=== PATIENT | female | born 1965 | race Caucasian/White ===

== ENCOUNTER 2025-01-29 12:19 | Outpatient (OUT) | payer OTHER, SELFPAY ==
--- OUTSIDE RECORDS SUMMARY | 2025-01-23 13:00 | XMS_ITS | Encounter Summary ---
Author Organization [facility] Address [address] [place] [address] Care Team Providers Care Community Development Officer Name Role Phone Marta Doss MD Primary Care Provider [phone] Reason for Visit * Reason Comments URI Encounter Details Date Type Department Care Team ([facility] st Contact Info) Description 01/23/2025 1:00 PM EDT Office Visit [facility] [address] [place] [address] Haley Burrell NP [address] [phone] Fever, unspecified fever cause (Primary Dx); Nausea and vomiting, unspecified vomiting type; Acute gastroenteritis Social History Tobacco Use Types Packs/Day Years Used Date Smoking Tobacco: Never Smokeless Tobacco: Never Alcohol Use Standard Drinks/Week Comments Yes 0 (1 standard drink = 0.6 oz pur e alcohol) caffeine inatke: occassionally PHQ-2 Answer Date Recorded Patient Health Questionnaire-2 Score 0 12/23/2024 Comments No Sex and Gender Information Value Date Recorded Sex Assigned at Not on file Legal Sex Female 7:30 PM EDT Gender Identity Not on file Sexual Orientation Not on file documented as of this encounter Last Filed Vital Signs Vital Sign Reading Time Taken Comments Blood Pressure 126/82 01/23/2025 1:04 PM EDT Pulse 70 01/23/2025 1:04 PM EDT Temperature 37.8 C (100 F) 01/23/2025 1:04 PM EDT Respiratory Rate - - Oxygen Saturation 97% 01/23/2025 1:04 PM EDT Inhaled Oxygen Concentration - - Weight 75.4 kg (166 lb 3.2 oz) 01/23/2025 1:04 P M EDT Height - - Body Mass Index 28.98 12/23/2024 11:49 AM EDT documented in this encounter Progress Notes * Haley Burrell, CASE FILLER - 01/23/2025 1:00 PM EDT Images from the original note were not included. Rekha Dennis is a 59 y.o. female presents with chief complaint of URI HPI: HPI History of Present Illness The patient presents for evaluation of vomiting and diarrhea. She has been experiencing persistent vomiting since 8:00 AM yesterday, which she initially attributed to food poisoning from chicken consumption. The vomiting was severe, characterized by projectile expulsion of liquid. Concurrently, she also developed diarrhea. Her sleep was disrupted due to thesesymptoms. Despite attempting to work this morning, her symptoms recurred after two hours, forcing her to return home. She is unable to keep anything down, including water and Sprite. She suspects sheis severely dehydrated as she has been unable to retain any food or drink. She has lost 10 pounds since her last visit, which she believes is due to her illness. She is seeking relief from her stomach pain and vomiting to get some sleep. She reports an increase in illness frequency this year, with two instances each of bronchitis and viral infection. 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 Her COVID-19 and influenza tests were negative. SUBJECTIVE: MEDICATIONS: ALLERGIES Current Outpatient Medications Medication Instructions atorvastatin (Lipitor) 80 MG tablet TAKE ONE TABLET BY MOUTH EVERY DAY AT THE same time estradiol (Estrace) 0.1 MG/GM vaginal cream 2g vaginal daily for 2 weeks, then 2 times weekly following initial 2 weeks ezetimibe (ZETIA) 10 mg, Oral, Daily ezetimibe (ZETIA) 10 mg, Oral, Daily levothyroxine (Synthroid, Levoxyl) 150 MCG tablet TAKE ONE TABLET BY MOUTH IN THE MORNING ON AN EMPTY STOMACH lisinopril-hydroCHLOROthiazide 20-25 MG tablet 1 tablet, Oral, Every morning PARoxetine (PAXIL) 10 mg, Oral, Every morning traZODone (DESYREL) 50 mg, Oral, Nightly Allergies Allergen Reactions Seasonal Ic [Octacosanol] PAST MEDICAL HISTORY: SOCIAL HISTORY SURGICAL HISTORY: Past Medical History: Diagnosis Date Abdominal bloating Ankle fracture 04/2020 Left Cervical disc prolapse with radiculopathy Diabetes mellitus type II, controlled (HCC) Epigastric abdominal pain Ganglion cyst Ganglion/Synovial-cyst hand Hypertension Hypothyroidism Knee pain Lumbar back sprain Lumbar disc prolapse with compression radiculopathy Menopause present Postmenopausal bleeding Shingles Sinusitis Spondylolisthesis at L5-S1 level Unspecified otitis externa, right ear Social History Tobacco Use Smoking status: Never Smokeless tobacco: Never Vaping Use Vaping status: Never Used Substance Use Topics Alcohol use: Yes Comment: caffeine inatke: occassionally Drug use: Not Currently Past Surgical History: Procedure Laterality Date SECTION, CLASSIC EXPOSURE OF IMPACTED TOOTH OTHER SURGICAL HISTORY Laproscopy- Endometriosis MA LAP, SURG, RADFREQ ABLATION OF UTERINE FIBROID(S), INC INTRAOP GUIDE-MONITOR 2000 TUBAL LIGATION 2000 REVIEW OF SYMPTOMS: Review of Systems Constitutional: Positive for fatigue. Negative for fever. HENT: Positive for congestion, rhinorrhea, sinus pain and sore throat. Respiratory: Positive for cough, shortness of breath and wheezing. Cardiovascular: Negative for chest pain, palpitations and leg swelling. Gastrointestinal: Negative for abdominal pain. OBJECTIVE: Vitals: 01/23/25 1304 Temp: 100 ??F Physical Exam Vitals and nursing note reviewed. Constitutional: Appearance: Normal appearance. HENT: Head: Normocephalic and atraumatic. Right Ear: Tympanic membrane normal. Left Ear: Tympanic membrane normal. Nose: Nose normal. Eyes: Extraocular Movements: Extraocular movements intact. Conjunctiva/sclera: Conjunctivae normal. Pupils: Pupils are equal, round, and reactive to light. Cardiovascular: Rate and Rhythm: Normal rate and regular rhythm. Heart sounds: Normal heart sounds. Pulmonary: Effort: Pulmonary effort is normal. Breath sounds: Normal breath sounds. Abdominal: General: Bowel sounds are normal. There is no distension. Palpations: Abdomen is soft. Tenderness: There is no abdominal tenderness. There is no right CVA tenderness or left CVA tenderness. Musculoskeletal: Cervical back: Normal range of motion and neck supple. Neurological: Mental Status: She is alert. ASSESSMENT AND PLAN: Assessment/Plan Diagnoses and all orders for this visit: Fever, unspecified fever cause - STATUS COVID-19/FLU Nausea and vomiting, unspecified vomiting type - STATUS COVID-19/FLU - ondansetron (Zofran) 4 MG tablet; Take 2 tablets (8 mg) by mouth every 8 (eight) hours if needed for nausea or vomiting for up to 7 days Acute gastroenteritis Reassurance given that this is most likely viral and should continue to gradually improve. Increasewater intake, sipping clear fluids frequently, get plenty of rest. Keep to a bland diet, BRAT diet reviewed, advance as tolerated. Encouraged Probiotic. Wash hands often, and avoid sharing food/drinks. Instructed to notify office if symptoms persist and will obtain stool cultures to r/o bacterial cause at that time. No follow-ups on file. documented in this encounter Plan of Treatment Upcoming Encounters Date Type Department Care Team (Late st Contact Info) Description 02/17/2025 8:30 AM EDT Office Visit [facility] [address] [place] [phone] Liseth Vargas PA [address] [place] [address] documented as of this encounter Goals Goal Patient Goal Type Associated Problems Recent Progress Patient-Stated? Author Help patient manage antidepressant medication Care Plan Patient on antidepressant monitoring plan No Alfreda Mann NP Baseline PHQ-9 Care Plan Baseline PHQ-9 No Alfreda Mann NP documented as of this encounter Procedures Procedure Name Priority Date/Time Associated Diagnosis Comments STATUS COVID-19/FLU Routine 01/23/2025 1 :16 PM EDT Fever, unspecified fever cause Nausea and vomiting, unspecified vomiting type documented in this encounter Results * STATUS COVID-19/FLU (01/23/2025 1:16 PM EDT) FLU A negative FLU B negative SARS COV 2 RNA negative Nasal 01/23/2025 1:16 PM EDT Haley Nunes Indra CASE FILLER POINT OF CARE TEST ENTE R/EDIT ORDERABLES Final Result documented in this encounter Visit Diagnoses Diagnosis Fever, unspecified fever cause- Primary Nausea and vomiting, unspecified vomiting type Acute gastroenteritis Other and unspecified noninfectious gastroenteritis and colitis documented in this encounter Additional Health Concerns Active Problems Noted Date Diagnosed Date Patient on antidepressant monitoring plan 2024 Baseline PHQ-9 07/31/2024 Assessment Noted Time PHQ-9 Depression Total Score: 0 12/24/19 25 11:54 AM EDT documented as of this encounter Care Teams Community Development Officer Relationship Specialty Start Date End Date Marta Doss MD [address] [place] [address] PCP - General Family Medicine 10/26/23 documented as of this encounter
--- OUTSIDE RECORDS SUMMARY | 2025-01-27 15:30 | XMS_ITS | Encounter Summary ---
Author Organization [facility] Healthcare Address [address] [place] [address] Care Team Providers Care Mgmt Consultant Name Role Phone Marta Doss MD Primary Care Provider Reason for Referral * Imaging (Stat) - Closed Specialty Diagnoses / Procedures Referred By Contamber t Referred To Contact Radiology Diagnoses Continuous severe abdominal pain Nausea and vomiting, unspecified vomiting type Black tarry stools Procedures CT abdomen pelvis wo IV contrast Haley Burrell NP Phone: tel: [facility] FNR [address] [facility] [address] [place] [address] Phone: tel: fax: Referral ID Status Reason Start Date Expiration Date Visits Re quested Visits Authorized [id number] Closed 01/27/2025 07/26/2025 1 1 Reason for Visit * Reason Comments Pain Encounter Details Date Type Department Care Team ([facility] Contact Info) Description 01/27/2025 3:30 PM EDT Office Visit [facility] FM [address] [place] [address] Haley Burrell NP [address] [facility] [address] [place] [address] Continuous severe abdominal pain (Primary [...] EDT Office Visit [facility] B[facility] OB [address] [facility] [place] [id number] Liseth Vargas PA [address] [facility] [place] [address] Scheduled Orders Name Type Priority Associated Diagnoses Orde r Schedule Occult blood x 1, stool Lab Routine Black tarry stools Expected: 01/27/2025 (Approximate), Expires: 01/27/2026 Stool culture Microbiology Routine Black tarry stools [...] Procedure Name Priority Date/Time Associated Diagnosis Comments CBC (INCLUDES DIFF/PLT) Routine 01/27/2025 3:54 PM [...] type documented in this encounter Results * CT abdomen pelvis wo IV contrast [...] SIGNED BY: Josiah Sol MD Haley Burrell NP IMG CT PROCEDURES Final Result * (ABNORMAL) [...] Performing Organization Information Site ID: QPT Name: [employer] [facility] Address: [address] [place] [address], [address] [place] [phone] Director: Juve Zamarripa MD us Haley Burrell [employer]PER[employer] LAB BLOOD ORDERABLES Fi nal Result [facility] [...] Performing Organization Information Site ID: QPT Name: [employer] [facility] Address: [address] [place] [address], [address] [place] [phone] Director: Juve Zamarripa MD us Haley Burrell SUPERVISOR [employer] LAB BLOOD ORDERABLES Fi nal Result [facility] * Amylase (01/27/2025 3:54 PM EDT) AMYLASE 44 21 - 101 U/L [facility] Blood Venous blood specimen / Unknown 01/27/2025 3:54 PM EDT 01/27/2025 3:55 PM EDT Narrative [facility] - 01/28/2025 4:41 AM EDT COLLECTION KIT GIVEN TO PATIENT. PATIENT ADVISED TO RETURN. Resulting Agency Comment Performing Organization Information Site ID: QPT Name: [employer] [facility] Address: [address] [place] [address], [address] [place], [place] [id number] Director: Juve Zamarripa MD Haley Burrell SUPERVISOR [employer] LAB BLOOD ORDERABLES Fi nal Result Performing Organization Address [facility] Co de Phone Number [facility] * Lipase (01/27/2025 3:54 PM EDT) LIPASE 54 7 - 60 U/L [facility] Blood Venous blood specimen / Unknown 01/27/2025 3:54 PM EDT 01/27/2025 3:55 PM EDT Narrative [facility] - 01/28/2025 4:41 AM EDT COLLECTION KIT GIVEN TO PATIENT. PATIENT ADVISED TO RETURN. Resulting Agency Comment Performing Organization Information Site ID: QPT Name: [employer] [facility] Address: [address] [place] [address], [address] [place] [address] Director: Juve Zamarripa MD Haley Burrell SUPERVISOR [employer] LAB BLOOD ORDERABLES Fi nal Result Performing Organization Address [facility] de Phone Number [facility] documented in this encounter Visit Diagnoses [...] documented as of this encounter Care Teams Mgmt Consultant Relationship Specialty Start Date End Date Marta Doss MD [address] [place] [address] PCP - General Family Medicine 10/26/23 documented as of this encounter
--- OUTSIDE RECORDS SUMMARY | 2025-01-28 09:30 | XMS_ITS | Encounter Summary ---
Author Organization [facility] Healthcare Address [address] [place] [address] Care Team Providers Care Driver'S License Examiner Name Role Phone Marta Doss MD Primary Care Provider [phone] Reason for Visit * Imaging (Stat) - Closed Specialty Diagnoses / Procedures Referred By Contamber t Referred To Contact Radiology Diagnoses Continuous severe abdominal pain Nausea and vomiting, unspecified vomiting type Black tarry stools Procedures CT abdomen pelvis wo IV contrast Haley Burrell NP Phone: tel: [facility] [address] [facility] [address] [place] [address] Phone: tel: fax: Referral ID Status Reason Start Date Expiration Date Visits Re quested Visits Authorized [id number] Closed 01/27/2025 07/26/2025 1 1 Encounter Details Date Type Department Care Team (Latest Contact Info) Description 01/28/2025 9:30 AM EDT Ancillary Procedure [facility] FNR [address] [facility] [address] [place] [address] Continuous severe abdominal pain; Nausea [...] EDT Office Visit [facility] [address] [facility] [place] [address] Liseth Vargas PA [address] [facility] [place] [address] documented as of this encounter Goals Goal [...] documented as of this encounter Care Teams Driver'S License Examiner Relationship Specialty Start Date End Date Marta Doss MD [address] [place] [address] PCP - General Family Medicine 10/26/23 documented as of this encounter
--- OUTSIDE RECORDS SUMMARY | 2025-01-29 12:22 | XMS_ITS | Encounter Summary ---
Author Organization [facility] Address [address] [facility] [place] [address] Care Team Providers Care Foster Care Case Manager Name Role Phone Karla Alba DO Primary Care Provider [phone] Marta Doss MD Primary Care Provider [phone] Reason for Visit * Reason Onset Date Comments Med Refill 07/04/2023 Encounter Details Date Type Department Care Team (Late Contact Info) Description 07/04/2023 Refill [facility] [address] [place] [address] Karla Alba DO [address] [facility] [address] [place] [address] Primary insomnia Social History Tobacco Use Types Packs/Day Years Used Date Smoking Tobacco: Never Alcohol Use Standard Drinks/Week Comments Not Currently 0 (1 standard drink = 0.6 oz pur e alcohol) caffeine intake: none Comments Unknown Sex and Gender Information Value Date Recorded Sex Assigned at Not on file Legal Sex Female 7:30 PM EDT Gender Identity Not on file Sexual Orientation Not on file documented as of this encounter Plan of Treatment Upcoming Encounters Date Type Department Care Team (Late Contact Info) Description 02/17/2025 8:30 AM EDT Office Visit [facility] OB [address] [facility] [place] [phone] Liseth Vargas PA [address] [facility] [place] [address] documented as of this encounter Visit Diagnoses Diagnosis Primary insomnia Persistent disorder of initiating or maintaining sleep documented in this encounter Care Teams Foster Care Case Manager Relationship Specialty Start Date End Date Karla Alba DO PCP - General Family Medicine 11/29/22 10/25/23 Marta Doss MD [address] [place] [address] PCP - General Family Medicine 10/26/23 documented as of this encounter
--- OUTSIDE RECORDS SUMMARY | 2025-01-29 12:22 | XMS_ITS | Encounter Summary ---
Author Organization [facility] Address [address] [facility] [place] [address] Care Team Providers Care Hub Bander Name Role Phone Karla Alba DO Primary Care Provider [phone] Marta Doss MD Primary Care Provider [phone] Encounter Details Date Type Department Care Team (Late Contact Info) Description 08/02/2023 Orders Only [facility] [address] [place] [address] Karla Alba DO [address] [facility] [address] [place] [address] Social History Tobacco Use Types Packs/Day Years Used Date Smoking Tobacco: Never Smokeless Tobacco: Never Alcohol Use Standard Drinks/Week Comments Never 0 (1 standard drink = 0.6 oz [...] EDT Office Visit [facility] OB [address] [facility] [place] [address] Liseth Vargas PA [address] [facility] [place] [address] documented as of this encounter Procedures Procedure Name Priority Date/Time Associated Diagnosis Comments HM COLONOSCOPY Routine 05/05/2023 1:12 PM EDT documented in this encounter Results * Hm Colonoscopy (05/05/2023 1:12 PM EDT) Anatomical Region Laterality Modality Other Karla Alba DO HEALTH MAINTENANCE Final Result documented in this encounter Visit Diagnoses Not on filedocumented in this encounter Care Teams Hub Bander Relationship Specialty Start Date End Date Karla Alba DO PCP - General Family Medicine 11/29/22 10/25/23 Marta Doss MD [address] [place] [address] PCP - General Family Medicine 10/26/23 documented as of this encounter
--- OUTSIDE RECORDS SUMMARY | 2025-01-29 12:22 | XMS_ITS | Encounter Summary ---
Author Organization [facility] Address [address] [facility] [place] [address] Care Team Providers Care Director Nurses' Registry Name Role Phone Karla Alba DO Primary Care Provider [phone] Marta Doss MD Primary Care Provider [phone] Encounter Details Date Type Department Care Team (Late Contact Info) Description 05/05/2023 Abstract [facility]NR [address] [place] [address] Karla Alba DO [address] [facility] [address] [place] [address] Social History Tobacco Use Types [...] Visit [facility] OB [address] [facility] [place] [address] iLseth Vargas PA [address] [facility] [address] [place], [place] [id number] documented as of this encounter Visit Diagnoses Not on filedocumented in this encounter Care Teams Director Nurses' Registry Relationship Specialty Start Date End Date Karla Alba GudeliaDO PCP - General Family Medicine 11/29/22 10/25/23 Marta Doss MD [address] [place] [address] PCP - General Family Medicine 10/26/23 documented as of this encounter
--- OUTSIDE RECORDS SUMMARY | 2025-01-29 12:22 | XMS_ITS | Encounter Summary ---
Author Organization [facility] Address [address] [place] [address] Care Team Providers Care Patient Support Specialist Name Role Phone Parth, Karla Galeas DO Primary Care Provider [phone] Marta Doss MD Primary Care Provider Encounter Details Date Type Department Care Team (Late st Contact Info) Description 12/26/[address] [facility] [address] [facility] [address] [place] [phone] Олег Pena DO [address] [facility] [address] [place] [address] Social History Tobacco Use Types Packs/Day Years Used Date Smoking Tobacco: Never Tobacco Cessation:Counseling Given: Not Answered Alcohol Use Standard Drinks/Week Comments Not Currently [...] EDT Office Visit [facility] OB [address] [facility] [address] Liseth Vargas PA [address] [facility] [place] [address] documented as of this encounter Visit Diagnoses Not on filedocumented in this encounter Care Teams Patient Support Specialist Relationship Specialty Start Date End Date Karla Alba DO PCP - General Family Medicine 11/29/22 10/25/23 Marta Doss MD [address] [place] [address] PCP - General Family Medicine 10/26/23 documented as of this encounter
--- OUTSIDE RECORDS SUMMARY | 2025-01-29 12:23 | XMS_ITS | Encounter Summary ---
Author Organization [facility] Address [address] [place] [address] Care Team Providers Care Feed Mixer Helper Name Role Phone Marta Doss MD Primary Care Provider [phone] Encounter Details Date Type Department Care Team (Latest Contact Info) Description 01/27/2025 Travel Social History Tobacco Use Types Packs/Day Years [...] EDT Office Visit [facility] OB [address] [facility] [place] [address] Liseth Vargas PA [address] [facility] [place] [address] documented as of this encounter Goals Goal Patient Goal Type Associated Problems Recent Progress Patient-Stated? Author Help patient manage antidepressant medication Care Plan Patient on antidepressant monitoring plan No Alfreda Mann NP Baseline PHQ-9 Care Plan Baseline PHQ-9 No Alfreda Mann NP documented as of this encounter Visit Diagnoses Not on filedocumented in this encounter Additional Health Concerns Active Problems Noted Date Diagnosed Date Patient on antidepressant monitoring plan 2024 Baseline PHQ-9 07/31/2024 Assessment Noted Time PHQ-9 Depression Total Score: 0 12/24/19 25 11:54 AM EDT documented as of this encounter Care Teams Feed Mixer Helper Relationship Specialty Start Date End Date Marta Doss MD [address] [place] [address] PCP - General Family Medicine 10/26/23 documented as of this encounter
--- OUTSIDE RECORDS SUMMARY | 2025-01-29 12:23 | XMS_ITS | Encounter Summary ---
Author Organization [facility] Address [address] [facility] [place] [address] Care Team Providers Care Coat Examiner Name Role Phone Marta Doss MD Primary Care Provider [phone] Encounter Details Date Type Department Care Team ([facility] Contact Info) Description 11/21/2024 Orders Only [facility] [address] [facility] [place] [address] Kathya Martínez LPN [address] [place] [id number] Social History Tobacco Use Types Packs/Day Years Used Date Smoking Tobacco: Never Smokeless Tobacco: Never Alcohol Use Standard Drinks/Week Comments Yes 0 (1 standard drink = 0.6 oz pure alcohol) caffeine inatke: 2 cups of coffee Comments Unknown Sex and Gender Information Value Date Recorded Sex Assigned at Not on file Legal Sex Female 7:30 PM EDT Gender Identity Not on file Sexual Orientation Not on file documented as of this encounter Plan of Treatment Upcoming Encounters Date Type Department Care Team (Late Contact Info) Description 02/17/2025 8:30 AM EDT Office Visit [facility] OB [address] [place] [address] Liseth Vargas PA [address] [place], [place] [address] documented as of this encounter Goals Goal Patient Goal Type Associated Problems Recent Progress Patient-Stated? Author Help patient manage antidepressant medication Care Plan Patient on antidepressant monitoring plan No Kampfer, Alfreda, COMPUTER SYSTEMS SOFTWARE ENGINEER Baseline PHQ-9 Care Plan Baseline PHQ-9 No Alfreda Mann NP documented as of this encounter Procedures Procedure Name Priority Date/Time Associated Diagnosis Comments PAP SMEAR Routine 10/24/2024 12:00 AM EDT documented in this encounter Results * (ABNORMAL) Pap Smear (10/24/2024 12:00 AM EDT) Swab Cervical swab / Unknown Jamie Nurse [facility] Ob LAB CYTOLOGY ORDERABLES Final Result EXTERNAL LAB documented in this encounter Visit Diagnoses Not on filedocumented in this encounter Additional Health Concerns Active Problems Noted Date Diagnosed Date Patient on antidepressant monitoring plan 2024 Baseline PHQ-9 07/31/2024 documented as of this encounter Care Teams Coat Examiner Relationship Specialty Start Date End Date Marta Doss MD [address] [place] [address] PCP - General Family Medicine 10/26/23 documented as of this encounter
--- OUTSIDE RECORDS SUMMARY | 2025-01-29 12:23 | XMS_ITS | Encounter Summary ---
Author Organization [facility] Address [address] [place] [address] Care Team Providers Care Deli Slicer Name Role Phone Marta Doss MD Primary Care Provider [phone] Encounter Details Date Type Department Care Team (Latest Contact Info) Description 01/28/2025 Travel Social History Tobacco Use Types Packs/Day [...] EDT Office Visit [facility] OB [address] [facility] [phone] Liseth Vargas PA [address] [facility] [place] [address] documented as of this encounter Goals Goal [...] documented as of this encounter Care Teams Deli Slicer Relationship Specialty Start Date End Date Marta Doss MD [address] [place] [address] PCP - General Family Medicine 10/26/23 documented as of this encounter
--- OUTSIDE RECORDS SUMMARY | 2025-01-29 12:23 | XMS_ITS | Encounter Summary ---
Author Organization [facility] Address [address] [facility] [place] [address] Care Team Providers Care Top Cleaner Name Role Phone Marta Doss MD Primary Care Provider [phone] Encounter Details Date Type Department Care Team ([facility] Contact Info) Description 01/28/2025 Results Follow-Up [facility]NR FM [address] [place] [address] Alfreda Mann NP [address] [place], [place] [phone] Social History Tobacco Use Types Packs/Day Years [...] Upcoming Encounters Date Type Department Care Team ([facility] Contact Info) Description 02/17/2025 8:30 AM EDT Office Visit [facility] BCP OB [address] [facility] [address] Liseth Vargas PA [address] [facility] [address] [place], [place] [address] documented as of this encounter Goals Goal [...] documented as of this encounter Care Teams Top Cleaner Relationship Specialty Start Date End Date Marta Doss MD [address] [place] [address] PCP - General Family Medicine 10/26/23 documented as of this encounter
--- OUTSIDE RECORDS SUMMARY | 2025-01-29 12:23 | XMS_ITS | Encounter Summary ---
Author Organization [facility] Address [address] [place] [address] Care Team Providers Care Side Seam Machine Operator Name Role Phone Marta Doss MD Primary Care Provider [phone] Encounter Details Date Type Department Care Team (Late Contact Info) Description 11/27/2024 Results Follow-Up [facility]NR OB [address] [place] [address] Marta Blandon MA Social History Tobacco Use Types Packs/Day Years [...] Upcoming Encounters Date Type Department Care Team ([facility] Contact Info) Description 02/17/2025 8:30 AM EDT Office Visit [facility] OB [address] [facility] [place] [address] Liseth Vargas PA [address] [facility] [place] [address] documented as of this encounter Goals Goal [...] documented as of this encounter Care Teams Side Seam Machine Operator Relationship Specialty Start Date End Date Marta Doss MD [address] [place] [address] PCP - General Family Medicine 10/26/23 documented as of this encounter
--- OUTSIDE RECORDS SUMMARY | 2025-01-29 12:23 | XMS_ITS | Encounter Summary ---
Author Organization [facility] Address [address] [place] [address] Care Team Providers Care Green End Man Name Role Phone Marta Doss MD Primary Care Provider [phone] Encounter Details Date Type Department Care Team (Late Contact Info) Description 01/27/2025 Telephone [facility] FNR [address] [place] [address] Marta Velez MA [address] [place], [place] [address] Social History Tobacco Use Types Packs/Day Years [...] on file documented as of this encounter Miscellaneous Notes * Telephone Encounter - Marta Velez MA - 01/27/2025 8:02 AM EDT Scheduled documented in this encounter Plan of Treatment Upcoming Encounters Date Type Department Care Team (Late Contact Info) Description 02/17/2025 8:30 AM EDT Office Visit [facility] OB [address] [place] [address] [place] [address] Liseth Vargas PA [address] [place] [address] [place] [address] documented as of this encounter Goals Goal [...] documented as of this encounter Care Teams Green End Man Relationship Specialty Start Date End Date Marta Doss MD [address] [place] [address] PCP - General Family Medicine 10/26/23 documented as of this encounter
--- OUTSIDE RECORDS SUMMARY | 2025-01-29 12:23 | XMS_ITS | Encounter Summary ---
Author Organization [facility] Address [address] [place] [address] Care Team Providers Care Granite Polisher Name Role Phone Marta Doss MD Primary Care Provider Encounter Details Date Type Department Care Team (Late Contact Info) Description 01/28/2025 Results Follow-Up [facility] FM [address] [place] [address] Haley Burrell NP [address] [address] Social History Tobacco Use Types Packs/Day Years [...] EDT Office Visit [facility] [address] [facility] [place] [address] Liseth Vargas PA [address] [place], [place] [address] documented as of this encounter Goals Goal [...] documented as of this encounter Care Teams Granite Polisher Relationship Specialty Start Date End Date Marta Doss MD [address] [place] [address] PCP - General Family Medicine 10/26/23 documented as of this encounter
--- OUTSIDE RECORDS SUMMARY | 2025-01-29 12:23 | XMS_ITS | Encounter Summary ---
Author Organization [facility] Address [address] [facility] [place] [address] Care Team Providers Care Automatic Dispenser Mechanic Name Role Phone Marta Doss MD Primary Care Provider Encounter Details Date Type Department Care Team ([facility] Contact Info) Description 11/29/2024 Orders Only [facility] FNR [address] [place] [address] Marta Doss MD [address] [place], [place] [address] Social History Tobacco Use Types Packs/Day Years Used Date Smoking Tobacco: Never Smokeless Tobacco: Never Alcohol Use Standard Drinks/Week Comments Yes 0 (1 standard drink = 0.6 oz pure alcohol) caffeine inatke: 2 cups of coffee Comments No Sex and Gender Information Value Date Recorded Sex Assigned at Not on file Legal Sex Female 7:30 PM EDT Gender Identity Not on file Sexual Orientation Not on file documented as of this encounter Plan of Treatment Upcoming Encounters Date Type Department Care Team ([facility] Contact Info) Description 02/17/2025 8:30 AM EDT Office Visit [facility] BCP OB [address] [facility] [address] Liseth Vargas PA [address] [facility] [address] [place], [place] [address] documented as of this encounter Goals Goal Patient Goal Type Associated Problems Recent Progress Patient-Stated? Author Help patient manage antidepressant medication Care Plan Patient on antidepressant monitoring plan No Alfreda Mann NP Baseline PHQ-9 Care Plan Baseline PHQ-9 No Alfreda Mann NP documented as of this encounter Procedures Procedure Name Priority Date/Time Associated Diagnosis Comments DIABETIC RETINOPATHY SCREENING - OU - BOTH EYES Routine 11/28/2024 9:12 AM EDT documented in this encounter Results * Diabetic Retinopathy Screening - OU - Both Eyes (11/28/2024 9:12 AM EDT) Anatomical Region Laterality Modality Head Other us Marta Doss MD OPHTH PHOTOGRAPHY Final Resul t documented in this encounter Visit Diagnoses Not on filedocumented in this encounter Additional Health Concerns Active Problems Noted Date Diagnosed Date Patient on antidepressant monitoring plan 2024 Baseline PHQ-9 07/31/2024 documented as of this encounter Care Teams Automatic Dispenser Mechanic Relationship Specialty Start Date End Date Marta Doss MD [address] [place] [address] PCP - General Family Medicine 10/26/23 documented as of this encounter
--- OUTSIDE RECORDS SUMMARY | 2025-01-29 12:23 | XMS_ITS | Clinical Summary ---
Author Organization [facility] Healthcare Address [address] [place] [address] Care Team Providers Care Mutuel Cashier Name Role Phone Marta Doss MD Primary Care Provider [phone] Allergies Active Allergy Reactions Criticality Noted Date Comments Octacosanol 02/01/2024 Medications levothyroxine (Synthroid, Levoxyl) 150 MCG tabletIndications :Acquired hypothyroidism TAKE ONE TABLET BY MOUTH IN THE MORNING ON AN EMPTY STOMACH 90 tablet 2 07/02/20 24 Active atorvastatin (Lipitor) 80 MG tabletIndications :Mixed hyperlipidemia TAKE ONE TABLET BY MOUTH EVERY DAY AT THE same time 90 tablet 1 10/09/19 25 Active traZODone (Desyrel) 50 MG tabletIndications :Primary insomnia Take 1 tablet (50 mg) by mouth at bedtime 90 tablet 1 10/31/19 25 Active ezetimibe (Zetia) 10 MG tabletIndications :Mixed hyperlipidemia Take 1 tablet (10 mg) by mouth Daily 90 tablet 11/05/19 25 Active PARoxetine (Paxil) 10 MG tabletIndications :Menopausal syndrome (hot flashes),Anxiety TAKE 1 TABLET BY MOUTH EVERY MORNING 90 tablet 1 11/11/19 25 Active estradiol (Estrace) 0.1 MG/GM vaginal creamIndications: Pain in female genitalia on intercourse 2g vaginal daily for 2 weeks, then 2 times weekly following initial 2 weeks 42.5 g 11/29/19 25 Active lisinopril-hydroC HLOROthiazide 20-25 MG tabletIndications :Primary hypertension Take 1 tablet by mouth in the morning. 90 tablet 1 01/02/20 25 Active ondansetron (Zofran) 4 MG tabletIndications :Nausea and vomiting, unspecified vomiting type Take 2 tablets (8 mg) by mouth every 8 (eight) hours if needed for nausea or vomiting for up to 7 days 20 tablet 01/24/20 25 2024 Active promethazine (Phenergan) 12.5 MG tabletIndications :Nausea and vomiting, unspecified vomiting type Take 1 tablet (12.5 mg) by mouth every 8 (eight) hours if needed for nausea or vomiting for up to 2 days 6 tablet 01/28/20 25 2024 Active ferrous sulfate (Fe Tabs) 325 (65 Fe) MG EC tabletIndications :Iron deficiency Take 1 tablet (325 mg) by mouth in the morning. Take with meals. Do not crush, chew, or split.. 90 tablet 1 02/02/20 24 2024 Discontinued(O ther) lisinopril-hydroC HLOROthiazide 20-25 MG tabletIndications :Primary hypertension TAKE ONE TABLET BY MOUTH EVERY MORNING 90 tablet 1 06/17/20 24 2024 Discontinued(R eorder) ezetimibe (Zetia) 10 MG tabletIndications :Mixed hyperlipidemia Take 1 tablet (10 mg) by mouth Daily for 10 days 10 tablet 11/05/19 25 2024 Discontinued benzonatate (Tessalon Perles) 100 MG capsuleIndication s:Acute bronchitis, unspecified organism Take 1 capsule (100 mg) by mouth 3 (three) times a day as needed for cough for up to 7 days Do not crush or chew. 20 capsule 12/24/19 25 2024 albuterol HFA 90 mcg/act inhalerIndication s:Acute bronchitis, unspecified organism Inhale 2 puffs every 4 (four) hours if needed for wheezing 18 g 12/24/19 25 2024 Discontinued(T herapy completed) Active Problems Problem Noted Date Diagnosed Date Abdominal bloating 08/02/2023 Anxiety 08/02/2023 Autoimmune hypothyroidism 08/02/2023 Cervical disc prolapse with radiculopathy 2023 Chronic sinusitis, unspecified 08/02/2023 Class 1 obesity 08/02/2023 Class 2 obesity 08/02/2023 Obesity (BMI 30-39.9) 08/02/2023 Elevated glucose 08/02/2023 Epigastric abdominal pain 08/02/2023 Gallbladder polyp 08/02/2023 Malick's thyroiditis 08/02/2023 Knee pain 08/02/2023 Leukocytosis 08/02/2023 Lumbar back sprain 08/02/2023 Other chronic pain 08/02/2023 Perimenopausal disorder 08/02/2023 Vasomotor symptoms due to menopause 08/02/2023 Postmenopausal bleeding 08/02/2023 Psychophysiological insomnia 08/02/2023 Recurrent major depressive disorder, in partial remission 08/02/2023 Shingles 08/02/2023 Sleep disturbance 08/02/2023 Spondylolisthesis at L5-S1 level 08/02/2023 Syncope and collapse 08/02/2023 Unspecified otitis externa, right ear 08/02/2023 Primary insomnia 08/02/2023 Type 2 diabetes mellitus wit hout complication, without long-term current use of insulin 07/28/2023 Acquired hypothyroidism 07/28/2023 Primary hypertension 07/28/2023 Mixed hyperlipidemia 07/28/2023 Disorder of sacrum 11/29/2022 Lumbar spondylosis 11/29/2022 Chronic low back pain with sciatica 11/29/2022 Cervical spondylosis without myelopathy 01/19/20 Stenosis of cervical spine 01/18/2022 Encounters Date Type Department Care Team Description 01/28/2025 9:30 AM EDT Ancillary Procedure [facility] [address] [facility] [address] [place] [phone] Continuous severe abdominal pain; Nausea and vomiting, unspecified vomiting type; Black tarry stools 01/28/2025 Results Follow-Up [facility] [address] [place] [address] Alfreda Mann NP 01/28/2025 Travel 01/28/2025 Results Follow-Up [facility] [address] [place] [phone] Haley Burrell NP 01/27/2025 3:30 PM EDT Office Visit [facility] [address] [place] [phone] Haley Burrell NP Continuous severe abdominal pain (Primary Dx); Nausea and vomiting, unspecified vomiting type; Black tarry stools 01/27/2025 Travel 01/27/2025 Telephone [facility] [address] [place] [phone] Marta Velez MA 01/23/2025 1:00 PM EDT Office Visit [facility] [address] [place] [phone] Haley Burrell NP Fever, unspecified fever cause (Primary Dx); Nausea and vomiting, unspecified vomiting type; Acute gastroenteritis 01/23/2025 Bamboo flowsheet [facility] [address] [facility] [place] [phone] Haley Burrell NP 01/23/2025 Travel 01/09/2025 9:40 AM EDT Consult [facility] OB [address] [place] [address] [place] [phone] Lam Ayala, Pre-op examination; Dyspareunia in female; Pelvic pain; Intramural and submucous leiomyoma of uterus 01/09/2025 Bamboo flowsheet [facility] OB [address] [place] [address] [place] [address] Lam Ayala DO 01/01/2025 Refill [facility] [address] [place] [phone] Bre Hernandez MA Primary hypertension 12/23/2024 12:00 PM EDT Office Visit [facility] [address] [place] [address] Alfreda Mann NP Acute bronchitis, unspecified organism (Primary Dx); Bilateral hearing loss, unspecified hearing loss type 12/23/2024 Bamboo flowsheet [facility] R [address] [place] [address] Alfreda Mann NP 12/23/2024 Travel 11/29/2024 Orders Only [facility] [address] [place] [address] Marta Doss MD 11/28/2024 8:40 AM EDT Consult [facility] OB [address] [place] [address] [place] [address] Lam Ayala, Pelvic pain in female; History of uterine fibroid; Pain in female genitalia on intercourse 11/28/2024 Bamboo flowsheet [facility] OB [address] [place] [address] [place] [address] Lam Ayala DO 11/27/2024 Results Follow-Up [facility] [address] [facility] [place] [phone] Marta Blandon MA 11/27/2024 Travel 11/21/2024 Orders Only [facility] OB [address] [place] [address] [place] [address] Kathya Martínez LPN 11/10/2024 Refill [facility] [address] [place] [phone] Alfreda Mann NP Menopausal syndrome (hot flashes); Anxiety 11/04/2024 Telephone [facility] [address] [place] [phone] Marta Doss MD 10/30/2024 Orders Only [facility] [address] [facility] [place] [phone] May Kohler, RADHAM Pelvic pain in female; History of uterine fibroid 10/30/2024 Refill [facility] [address] [place] [phone] Alfreda Mnan NP Primary insomnia from Last 3 Months Immunizations Immunization Administration Dates Next Due Influenza, injectable, quadr ivalent, preservative free 08/02/2023,07/21/2022,05/04/2021 Influenza, seasonal, injectable 05/08/2014,05/21 Influenza, seasonal, injecta ble, preservative free 04/27/2017,04/14/2016,04/30/2015 Tdap 05/01/2014 Zoster, Recombinant 08/20/2021,05/04/2021 Family History Medical History Relation Name Comments Diabetes Father Hypertension Father Hypothyroidism Father renal calculi Father Cholelithiasis Mother Depression Mother Stroke Mother adenocarcinoma Mother Relation Name Status Comments Father Alive Mother Alive Social History Tobacco Use Types Packs/Day Years Used Date Smoking Tobacco: Never Smokeless Tobacco: Never Tobacco Cessation:Counseling Given: Not Answered Alcohol Use Standard Drinks/Week Comments Yes 0 (1 standard drink = 0.6 oz pur e alcohol) caffeine inatke: occassionally PHQ-2 Answer Date Recorded Patient Health Questionnaire-2 Score 0 12/23/2024 Comments No Sex and Gender Information Value Date Recorded Sex Assigned at Not on file Legal Sex Female 7:30 PM EDT Gender Identity Not on file Sexual Orientation Not on file Last Filed Vital Signs Vital Sign Reading Time Taken Comments Blood Pressure 116/72 01/27/2025 3:31 PM EDT Pulse 72 01/27/2025 3:31 PM EDT Temperature 37.8 C (100 F) 01/23/2025 1:04 PM EDT Respiratory Rate 18 01/27/2025 3:31 PM EDT Oxygen Saturation 98% 01/27/2025 3:31 PM EDT Inhaled Oxygen Concentration - - Weight 73.9 kg (163 lb) 01/27/2025 3:31 PM EDT Height 160 cm (5' 3 ) 01/27/2025 3:31 PM EDT Body Mass Index 28.87 01/27/2025 3:31 PM EDT Plan of Treatment Upcoming Encounters Date Type Department Care Team (Late st Contact Info) Description 02/17/2025 8:30 AM EDT Office Visit [facility] [address] [place] [phone] Liseth Vargas PA [address] [place], [place] [phone] Health Maintenance Due Date Last Done Comments CT Colonography 1965 FIT 1965 FOBT 1965 Sigmoidoscopy 1965 Diabetes: Hemoglobin A1C 10/29/2024 025, 02/01/2024, 08/02/2023, Additional history exists Mammogram 11/14/2024 11/15/2023, 10/22, 10/29/2021, Additional history exists Influenza Vaccine (#1) 2025 , 07/21/2022, 05/04/2021, Additional history exists FIT-DNA 06/09/2025 06/09/2022, 03/12/2021 HPV/Cotest 09/16/2025 09/16/2020, 1203/2019, 06/25/2018 Diabetes: Urine Protein Screening 09/25/2025 09/25/2024, 08/02/2023, 10/19/2017 Diabetes: Retinopathy Screening 11/28/2026 11/28/2024, 07/04/2022, 07/04/2022, Additional history exists Cervical Cancer Screening 10/25/2027 Pap Smear 10/25/2027 10/24/2024 Colonoscopy 05/05/2033 05/05/2023, 04/23, 05/05/2023, Additional history exists Colorectal Cancer Screening 05/05/2033 Goals Goal Patient Goal Type Associated Problems Recent Progress Patient-Stated? Author Help patient manage antidepressant medication Care Plan Patient on antidepressant monitoring plan No Alfreda Mann NP Baseline PHQ-9 Care Plan Baseline PHQ-9 No Alfreda Mann NP Procedures Procedure Name Priority Date/Time Associated Diagnosis Comments CT ABDOMEN PELVIS WO IV CONTRAST STAT 01/28/2025 9:39 AM EDT Continuous severe abdominal pain Nausea and vomiting, unspecified vomiting type Black tarry stools CBC (INCLUDES DIFF/PLT) Routine 01/27/2025 3:54 PM EDT Nausea and vomiting, unspecified vomiting type Black tarry stools COMPREHENSIVE METABOLIC PANEL Routine 01/27/2025 3:54 PM EDT Nausea and vomiting, unspecified vomiting type AMYLASE Routine 01/27/2025 3:54 PM EDT Continuous severe abdominal pain Nausea and vomiting, unspecified vomiting type LIPASE Routine 01/27/2025 3:54 PM EDT Continuous severe abdominal pain Nausea and vomiting, unspecified vomiting type LIPID PANEL Routine 01/27/2025 3:51 PM EDT Mixed hyperlipidemia STATUS COVID-19/FLU Routine 01/23/2025 1 :16 PM EDT Fever, unspecified fever cause Nausea and vomiting, unspecified vomiting type DIABETIC RETINOPATHY SCREENING - OU - BOTH EYES Routine 11/28/2024 9:12 AM EDT PAP SMEAR Routine 10/24/2024 12:00 AM EDT MICROALBUMIN / CREATININE URINE RATIO Routine 09/25/2024 10:02 AM EST Type 2 diabetes mellitus without complication, without long-term current use of insulin (HCC) POCT GLYCATED HEMOGLOBIN, TOTAL Routine 07/31/2024 8:26 AM EST Type 2 diabetes mellitus with other specified complication (HCC) BI MAMMOGRAM SCREENING TOMOSYNTHESIS BILATERAL Routine 11/15/2023 8:43 AM EDT Screening mammogram for breast cancer [facility] COLONOSCOPY Routine 05/05/2023 1:12 PM EDT LAB COLOGUARD COLON CANCER SCREEN Routine 06/09/2022 Q - THINPREP(R) TIS AND HPV MRNA E6/E7 RFL HPV 16,18/45 Routine 09/16/2020 from Last 3 Months or Most Recently Relevant to Health Maintenance Results * CT abdomen pelvis wo IV [...] SIGNED BY: Josiah Sol MD Haley Burrell POULTRY HUSBANDRY TEACHER IMG CT PROCEDURES Final Result * (ABNORMAL) [...] Performing Organization Information Site ID: QPT Name: [facility] Address: [address] [place] [phone] Director: Juve Zamarripa MD Haley Burrell POULTRY HUSBANDRY TEACHER LAB BLOOD ORDERABLES Fi nal Result Performing Organization Address [facility]/ZIP Co de Phone Number [facility] * Lipase (01/27/2025 3:54 PM EDT) LIPASE 54 7 - 60 U/L [facility] Blood Venous blood specimen / Unknown 01/27/2025 3:54 PM EDT 01/27/2025 3:55 PM EDT Narrative [facility] - 01/28/2025 4:41 AM EDT COLLECTION KIT GIVEN TO PATIENT. PATIENT ADVISED TO RETURN. Resulting Agency Comment Performing Organization Information Site ID: QPT Name: [facility] Address: [address] [place] [address], [address] [place] [phone] Director: Juve Zamarripa MD Haley Burrell POULTRY HUSBANDRY TEACHER LAB BLOOD ORDERABLES Fi nal Result Performing Organization Address [facility] de Phone Number [facility] * Amylase (01/27/2025 3:54 PM EDT) Pathologist [facility] AMYLASE 44 21 - 101 U/L [facility] Blood Venous blood specimen / Unknown 01/27/2025 3:54 PM EDT 01/27/2025 3:55 PM EDT Narrative [facility] - 01/28/2025 4:41 AM EDT COLLECTION KIT GIVEN TO PATIENT. PATIENT ADVISED TO RETURN. Resulting Agency Comment Performing Organization Information Site ID: QPT Name: [facility] Address: [address] [place] [address], [address] [place] [phone] Director: Juve Zamarripa MD Haley Burrell POULTRY HUSBANDRY TEACHER LAB BLOOD ORDERABLES Fi nal Result Performing Organization Address [facility] Co de Phone Number [facility] * (ABNORMAL) Comprehensive metabolic panel (01/27/2025 [...] Performing Organization Information Site ID: QPT Name: [facility] Address: [address] [place] [address], [address] [place] [phone] Director: Juve Zamarripa MD Haley Burrell POULTRY HUSBANDRY TEACHER LAB BLOOD ORDERABLES Fi nal Result [facility] * (ABNORMAL) Lipid panel (01/27/2025 3:51 PM EDT) CHOLESTEROL, TOTAL 206(H) <200 mg/dL [facility] HDL CHOLESTEROL 42(L) > OR = 50 mg/dL [facility] TRIGLYCERIDES 171(H) <150 mg/dL [facility] LDL CHOLESTEROL 133(H) mg/dL (calc) [facility] Comment: Reference range: <100 Desirable range <100 mg/dL for primary prevention; <70 mg/dL for patients with CHD or diabetic patients with > or = 2 CHD risk factors. LDL-C is now calculated using the Clara calculation, which is a validated novel method providing better accuracy than the Friedewald equation in the estimation of LDL-C. Roby ABDI et al. DREW. 2013;310(19): 5251-9597 (http://education.EVOFEM/faq/JRA559) CHOL/HDLC RATIO 4.9 <5.0 (calc) [facility] NON HDL CHOLESTEROL 164(H) <130 mg/dL (calc) [facility] Comment: For patients with diabetes plus 1 major ASCVD risk factor, treating to a non-HDL-C goal of <100 mg/dL (LDL-C of <70 mg/dL) is considered a therapeutic option. Blood Venous blood specimen / Unknown 01/27/2025 3:51 PM EDT 01/27/2025 3:51 PM EDT Narrative Resulting Agency Comment Performing Organization Information Site ID: QPT Name: [facility] Address: [address] [place] [address], [address] [place] [phone] Director: Juve Zamarripa MD Alfreda Mann POULTRY HUSBANDRY TEACHER LAB BLOOD ORDERABLES Final Resu lt [facility] * STATUS COVID-19/FLU (01/23/2025 1:16 PM EDT) FLU A negative FLU B negative SARS COV 2 RNA negative Nasal 01/23/2025 1:16 PM EDT Haley Burrell POULTRY HUSBANDRY TEACHER POINT OF CARE TEST ENTE R/EDIT ORDERABLES Final Result * Diabetic Retinopathy Screening - OU - Both Eyes (11/28/2024 9:12 AM EDT) Anatomical Region Laterality Modality Head Other Marta Doss MD OPHTH PHOTOGRAPHY Final Resul t * (ABNORMAL) Pap Smear (10/24/2024 12:00 AM EDT) Swab Cervical swab / Unknown Jamie Nurse [facility] LAB CYTOLOGY ORDERABLES Final Result EXTERNAL LAB * Microalbumin / creatinine, urine ratio (09/25/2024 10:02 AM EST) CREATININE, RANDOM URINE 179 20 - 275 mg/dL [facility] ALBUMIN, URINE 1.5 See Note: mg/dL [facility] Comment: Reference Range: Reference Range Not established ALBUMIN/CREATININE RATIO, RANDOM URINE 8 <30 mg/g creat [facility] Comment: The ADA defines abnormalities in albumin excretion as follows: Albuminuria Category Result (mg/g creatinine) Normal to Mildly increased <30 Moderately increased 30-299 Severely increased > OR = 300 The ADA recommends that at least two of three specimens collected within a 3-6 month period be abnormal before considering a patient to be within a diagnostic category. Urine Urine specimen obtained by clean catch procedure / Unknown 09/25/2024 10:02 AM EST 09/25/2024 3:39 PM EST Narrative Resulting Agency Comment Performing Organization Information Site ID: QPT Name: [facility] Address: [address] [place] [address], [address] [place] [phone] Director: Juve Zamarripa MD Alfreda Mann NP LAB URINE ORDERABLES Final Resu lt Performing Organization Address City/[facility]/ZIP Co de Phone Number [facility] * (ABNORMAL) POCT Glycated hemoglobin, total (07/31/2024 8:26 AM EST) Hemoglobin A1C 6.3 Capillary 07/31/2024 8:26 AM EST Alfreda Mann NP POINT OF CARE TEST ENTER/EDIT O RDERABLES Final Result * Bilateral screening mammogram with tomosynthesis (11/15/2023 8:43 AM EDT) Anatomical Region Laterality Modality Breast Bilateral Mammography 11/15/2023 11:2 3 AM EDT Impressions 11/15/2023 11:47 AM EDT BIRADS 1 - Negative Follow-up: Routine Screening Mamm Board Certified Radiologists. Accredited by the ACR and FDA. MAMMOGRAPHY IS VERY IMPORTANT TO YOUR HEALTH. THE [place] [employer] GUIDELINES RECOMMEND THAT WOMEN 40 YEARS OF AGE AND OLDER SHOULD HAVE A MAMMOGRAM EVERY YEAR. A REMINDER LETTER WILL BE SENT AT THE APPROPRIATE TIME. THIS FACILITY UTILIZES A REMINDER SYSTEM TO ENSURE ALL PATIENTS RECEIVE REMINDER NOTIFICATIONS AT THE APPROPRIATE TIME BASED ON THE RECOMMENDATIONS OF THIS EXAM. THIS INCLUDES REMINDERS FOR ROUTINE SCREENING MAMMOGRAMS, DIAGNOSTIC MAMMOGRAMS IN WHICH THE PATIENT IS ASKED TO RETURN FOR ADDITIONAL VIEWS, OR OTHER BREAST IMAGING INTERVENTIONS WHEN APPROPRIATE. THE PATIENT WILL BE PLACED IN THE APPROPRIATE REMINDER SYSTEM INCLUDING A REMINDER AT THE APPROPRIATE TIME FOR ANY PENDING ADDITIONAL VIEWS. TRANSCRIBED BY: ELECTRONICALLY SIGNED BY: Elieser Rodriguez MD Narrative 11/15/2023 11:47 AM EDT EXAMINATION: BI MAMMOGRAM SCREENING TOMOSYNTHESIS BILATERAL CLINICAL HISTORY:screening COMPARISON: November 02, 2022. RESULT: Digital mammography and 3D tomosynthesis of bilateral breasts was performed. Density: Almost entirely fatty [1] Overall appearance is stable. There is no suspicious mass, asymmetry, architectural distortion, or calcification Procedure Note Elieser Rodriguez MD - 11/15/2023 EXAMINATION: BI MAMMOGRAM SCREENING TOMOSYNTHESIS BILATERAL CLINICAL HISTORY:screening COMPARISON: November 02, 2022. RESULT: Digital mammography and 3D tomosynthesis of bilateral breasts wasperformed. Density: Almost entirely fatty [1] Overall appearance is stable. There is no suspicious mass, asymmetry,architectural distortion, or calcification IMPRESSION: BIRADS 1 - Negative Follow-up: Routine Screening Mamm Board Certified Radiologists. Accredited by the ACR and FDA. MAMMOGRAPHY IS VERY IMPORTANT TO YOUR HEALTH. THE [place] [employer] SOCIETYGUIDELINES RECOMMEND THAT WOMEN 40 YEARS OF AGE AND OLDER SHOULD HAVE AMAMMOGRAM EVERY YEAR. A REMINDER LETTER WILL BE SENT AT THE APPROPRIATE TIME. THIS FACILITYUTILIZES A REMINDER SYSTEM TO ENSURE ALL PATIENTS RECEIVE REMINDERNOTIFICATIONS AT THE APPROPRIATE TIME BASED ON THE RECOMMENDATIONS OF THISEXAM. THIS INCLUDES REMINDERS FOR ROUTINE SCREENING MAMMOGRAMS, DIAGNOSTICMAMMOGRAMS IN WHICH THE PATIENT IS ASKED TO RETURN FOR ADDITIONAL VIEWS,OR OTHER BREAST IMAGING INTERVENTIONS WHEN APPROPRIATE. THE PATIENT WILLBE PLACED IN THE APPROPRIATE REMINDER SYSTEM INCLUDING A REMINDER AT THEAPPROPRIATE TIME FOR ANY PENDING ADDITIONAL VIEWS. TRANSCRIBED BY: ELECTRONICALLY SIGNED BY: Elieser Rodriguez MD Haley Burrell POULTRY HUSBANDRY TEACHER IMG BI PROCEDURES Final Result * Hm Colonoscopy (05/05/2023 1:12 PM EDT) Anatomical Region Laterality Modality Other Karla Alba DO HEALTH MAINTENANCE Final Result * Cologuard?? colon cancer screening (06/09/2022) COLOGUARD RESULT REPORTABLE Cancelled - Duplicate Order Not Applicable [facility] 06/09/2022 Karla Alba DO LAB MOLECULAR DIAGNOSTICS ORDER LACHELLE Final Result [facility] * Q - THINPREP(R) TIS AND HPV MRNA E6/E7 RFL HPV 16,18/45 (09/16/2020) CLINICAL INFORMATION: None given [facility] LMP: None given [facility] PREV. PAP: None given [facility] PREV. BX: None given [facility] SOURCE: None given [facility] STATEMENT OF ADEQUACY: SEE NOTE [facility] Comment: Satisfactory for evaluation. Endocervical/transformation zone component present. INTERPRETATION/RE SULT: Negative for intraepithelial lesion or malignancy. [facility] COMMENT: This Pap test has been evaluated with computer assisted technology. [facility] SPECIAL SERVICES COORDINATOR: SEE NOTE NO [facility] Comment: LXT, CT(ASCP) CT screening location: [place] [address]. REVIEW SPECIAL SERVICES COORDINATOR: SEE NOTE [facility] Comment: PCJ, SCT(ASCP) CT screening location: [place] [address]. COMMENT SEE NOTE [facility] Comment: EXPLANATORY NOTE: The Pap is a screening test for cervical cancer. It is not a diagnostic test and is subject to false negative and false positive results. It is most reliable when a satisfactory sample, regularly obtained, is submitted with relevant clinical findings and history, and when the Pap result is evaluated along with historic and current clinical information. HPV MRNA E6/E7 Not Detected Not Detected [facility] Comment: Methodology: [employer]-Mediated Amplification This assay detects E6/E7 viral messenger RNA (mRNA) from 14 high-risk HPV types (16,18,31,33,35,39,45,51,52,56,58,59,66,68). The analytical performance characteristics of this assay have been determined by [facility]. The modifications have not been cleared or approved by the FDA. This assay has been validated pursuant to the CLIA regulations and is used for clinical purposes. For additional information, please refer to http://education.[employer]./QPO711v2 (This link if provided for information/ educational purposes only.) 09/16/2020 Westley Ferguson NP [facility] Final Result [facility] from Last 3 Months or Most Recently Relevant to Health Maintenance Additional Health Concerns Active Problems Noted Date Diagnosed Date Patient on antidepressant monitoring plan 2024 Baseline PHQ-9 07/31/2024 Insurance [facility] Care Teams Mutuel Cashier Relationship Specialty Start Date End Date Marta Doss MD [address] [place] [address] PCP - General Family Medicine 10/26/23
--- OUTSIDE RECORDS SUMMARY | 2025-01-29 12:23 | XMS_ITS | Encounter Summary ---
Author Organization [facility] tem Address [id number] [address] [place] [address] Care Team Providers Care Sagger Soak Name Role Phone DaveHaley love CANNON FIRE DIRECTION SPECIALIST-MEDICAL CLAIMS PROCESSOR Primary Care Pro vider Encounter Details Date Type Department Care Team (Late st Contact Info) Description 12/30/2022 Orders Only [facility] [address] [place] [address] Karla Alba DO Social History Tobacco Use Types Packs/Day Years Used Date Smoking Tobacco: Never Smokeless Tobacco: Never Alcohol Use Standard Drinks/Week Comments Yes 0 (1 standard drink = 0.6 oz pur e alcohol) occasional Childcare Answer Date Recorded Childcare Unknown 01/01/2019 Employment Answer Date Recorded Employment Unknown 01/01/2019 Purpose - Life Answer Date Recorded Purpose and direction in life Unknown Comments No Sex and Gender Information Value Date Recorded Sex Assigned at Not on file Legal Sex Female 5:10 PM EDT Gender Identity Not on file Sexual Orientation Not on file documented as of this encounter Plan of Treatment Not on file documented as of this encounter Procedures Procedure Name Priority Date/Time Associated Diagnosis Comments XR SPINE LUMBAR 2 OR 3 VWS Routine 10/24/2022 documented in this encounter Results * X-ray spine lumbar 2 or 3 views (10/24/2022) Anatomical Region Laterality Modality MSK, Neuro, Spine, L-spine N/A Compu margaret Radiography Karla Alba DO IMG DIAGNOSTIC IMAGING ORDERABL ES Final Result documented in this encounter Visit Diagnoses Not on filedocumented in this encounter Additional Health Concerns Infection Onset Date Last Indicated Resolved Time COVID-19 Rule-Out 04/04/2023 04/04/2023 04/04/2023 1:59 PM EDT COVID-19 Rule-Out 12/05/2023 12/05/2023 12/05/2023 1:42 PM EDT documented as of this encounter Care Teams Sagger Soak Relationship Specialty Start Date End Date Haley Burrell APRN-MEDICAL CLAIMS PROCESSOR [address] [place] [address] PCP - General Family Medicine 12/05/23 documented as of this encounter
--- OUTSIDE RECORDS SUMMARY | 2025-01-29 12:23 | XMS_ITS | Encounter Summary ---
Author Organization [facility] tem Address [id number] [address] [place] [address] Care Team Providers Care Brake Repair Mechanic Name Role Phone Haley Burrell ENGINEER OPERATIONS AND MAINTENANCE-SCRAP YARD WORKER Primary Care Pro vider Encounter Details Date Type Department Care Team (Late st Contact Info) Description 12/28/2021 Orders Only [facility] Management [facility] [address] [place] [phone] Alfreda Mann, ENGINEER OPERATIONS AND MAINTENANCE-SCRAP YARD WORKER [address] [place], [place] [id number] Social History Tobacco Use Types Packs/Day Years Used Date Smoking Tobacco: Never Smokeless Tobacco: Never Alcohol Use Standard Drinks/Week Comments Yes 0 (1 standard drink = 0.6 oz pur e alcohol) occasional Childcare Answer Date Recorded Childcare Unknown 01/01/2019 Employment Answer Date Recorded Employment Unknown 01/01/2019 Purpose - Life Answer Date Recorded Purpose and direction in life Unknown Comments Unknown Sex and Gender Information Value Date Recorded Sex Assigned at Not on file Legal Sex Female 5:10 PM EDT Gender Identity Not on file Sexual Orientation Not on file COVID-19 Exposure Response Date Recorded In the last 10 days, have yo u been in contact with someone who was confirmed or suspected to have Coronavirus/COVID-19? No / Unsure 12/30/2021 8:20 AM EDT documented as of this encounter Plan of Treatment Not on file documented as of this encounter Procedures Procedure Name Priority Date/Time Associated Diagnosis Comments XR SPINE CERVICAL 3 VWS OR LESS Routine 12/01/2021 documented in this encounter Results * X-ray spine cervical 3 views or less (12/01/2021) Anatomical Region Laterality Modality MSK, Neuro, Spine, C-spine N/A Compu margaret Radiography Alfreda Manju Mann APRN-SCRAP YARD WORKER IMG DIAGNOSTIC IMAGING ORDERABLES Final Result documented in this encounter Visit Diagnoses Not on filedocumented in this encounter Additional Health Concerns Infection Onset Date Last Indicated Resolved Time COVID-19 Rule-Out 04/04/2023 04/04/2023 04/04/2023 1:59 PM EDT COVID-19 Rule-Out 12/05/2023 12/05/2023 12/05/2023 1:42 PM EDT documented as of this encounter Care Teams Brake Repair Mechanic Relationship Specialty Start Date End Date Haley Burrell APRN-CNP [address] [place] [address] PCP - General Family Medicine 12/05/23 documented as of this encounter
--- OUTSIDE RECORDS SUMMARY | 2025-01-29 12:23 | XMS_ITS | Encounter Summary ---
Author Organization [facility] Address [address] [place] [address] Care Team Providers Care Horticultural Specialty Grower Field Name Role Phone Marta Doss MD Primary Care Provider [phone] Encounter Details Date Type Department Care Team (Late Contact Info) Description 01/23/2025 Bamboo flowsheet [facility] [address] [place] [address] Haley Burrell NP [address] [address] Social History Tobacco Use Types [...] EDT Office Visit [facility] [address] [address] Liseth Vargas PA [address] [facility] [address] [place], [place] [id number] documented as of this encounter Goals Goal [...] documented as of this encounter Care Teams Horticultural Specialty Grower Field Relationship Specialty Start Date End Date Marta Doss MD [address] [place] [address] PCP - General Family Medicine 10/26/23 documented as of this encounter
--- OUTSIDE RECORDS SUMMARY | 2025-01-29 12:23 | XMS_ITS | Encounter Summary ---
Author Organization [facility] Address [address] [place] [address] Care Team Providers Care Research Biologist Name Role Phone Marta Doss MD Primary Care Provider [phone] Encounter Details Date Type Department Care Team (Latest Contact Info) Description 01/23/2025 Travel Social History Tobacco Use Types Packs/Day [...] EDT Office Visit [facility] [address] [facility] [place] [phone] Liseth Vargas PA [address] [facility] [place] [address] documented as of this encounter Goals Goal [...] documented as of this encounter Care Teams Research Biologist Relationship Specialty Start Date End Date Marta Doss MD [address] [place] [address] PCP - General Family Medicine 10/26/23 documented as of this encounter
--- OUTSIDE RECORDS SUMMARY | 2025-01-29 12:23 | XMS_ITS | Clinical Summary ---
Author Organization [employer] tem Address [id number] [address] [place] [address] Care Team Providers Care Team Otr Truck Driver Name Role Phone Haley Burrell FOXING CUTTING MACHINE OPERATOR-DIRECTOR ENTERPRISE DATA ARCHITECTURE Primary Care Pro vider Allergies No known active allergies Medications levothyroxine (SYNTHROID, LEVOTHROID) 75 MCG tablet Take 1 tablet (75 mcg total) by mouth in the morning. Active ibuprofen (ADVIL,MOTRIN) 600 mg tablet Take 1 tablet (600 mg total) by mouth every 6 (six) hours as needed for pain. 30 tablet 0 Active Additional Information Patient not taking.Reported on 07/26/2023 lisinopril-hydr oCHLOROthiazide (PRINZIDE,ZESTO RETIC) 20-25 mg per tablet Active atorvastatin (LIPITOR) 40 mg tablet 1 tablet Active nbsrigav-qflr-V A-calcium &mins (THERAGRAN-M) 9 mg iron-400 mcg tablet Take 1 tablet by mouth in the morning. Active acetaminophen (TYLENOL ARTHRITIS) 650 mg 8 hr tablet Take 1 tablet (650 mg total) by mouth every 8 (eight) hours as needed for pain. Active citalopram (CeleXA) 10 mg tablet Take 1 tablet (10 mg total) by mouth in the morning. Active methylPREDNISol one (MEDROL, BRITNI,) 4 mg tablet follow package directions 21 tablet 3 Active Additional Information Patient not taking.Reported on 07/26/2023 Active Problems Problem Noted Date Diagnosed Date Chronic low back pain with sciatica 11/29/2022 Disorder of sacrum 11/29/2022 Lumbar spondylosis 11/29/2022 Cervical spondylosis without myelopathy 01/19/20 Stenosis of cervical spine 01/18/2022 Immunizations Immunization Administration Dates Next Due COVID-19, mRNA, LNP-S, PF, 100mcg/0.5mL Dose ,10/14/2020 Family History Medical History Relation Name Comments Atrial fibrillation Father Heart disease Father stents Blood Clots Mother d/t COVID Skin cancer Mother Stroke Mother Relation Name Status Comments Father Alive Mother Social History Tobacco Use Types Packs/Day Years Used Date Smoking Tobacco: Never Smokeless Tobacco: Never Tobacco Cessation:Counseling Given: Not Answered Alcohol Use Standard Drinks/Week Comments Yes 0 (1 standard drink = 0.6 oz pur e alcohol) occasional Childcare Answer Date Recorded Childcare Unknown 01/01/2019 Employment Answer Date Recorded Employment Unknown 01/01/2019 Hunger Screening Answer Date Recorded Within the past 12 months we worried whether our food would run out before we got money to buy more. Never True 07/26/2023 Within the past 12 months th e food we bought just didn't last and we didn't have money to get more. Never True 07/26/2023 Purpose - Life Answer Date Recorded Purpose and direction in life Unknown Comments No Sex and Gender Information Value Date Recorded Sex Assigned at Not on file Legal Sex Female 5:10 PM EDT Gender Identity Not on file Sexual Orientation Not on file Last Filed Vital Signs Vital Sign Reading Time Taken Comments Blood Pressure 148/76 12/05/2023 3:59 PM EDT Pulse 54 12/05/2023 11:33 AM EDT Temperature 36.6 C (97.9 F) 12/05/2023 11:33 AM EDT Respiratory Rate 18 12/05/2023 11:33 AM EDT Oxygen Saturation 98% 12/05/2023 4:00 PM EDT Inhaled Oxygen Concentration - - Weight 83.9 kg (185 lb) 12/05/2023 11:33 AM EDT Height 137.2 cm (4' 6 ) 12/05/2023 11:33 AM EDT Body Mass Index 44.61 12/05/2023 11:33 AM EDT Plan of Treatment Health Maintenance Due Date Last Done Comments Depression Screening 1977 Pap Smear 1986 COVID-19 Vaccine (4 - 2023-2 5 season) 2024 09/01/2021, 11/11/2020, 10/14/2020 DTaP,Tdap and Td Vaccines (2 - Td or Tdap) 05/01/2024 05/01/2014 Adult BMI Screening 12/04/2024 12/05/2023 Tobacco Screening 12/04/2024 12/05/2023 Influenza Vaccine 03/24/2025 08/02/2023, , 05/04/2021, Additional history exists Colonoscopy 05/05/2033 05/05/2023, 05/05/2023 Zoster (Shingles) Vaccine Completed 08/20/2021, 06/2021 Medical Devices Not on file Procedures Procedure Name Priority Date/Time Associated Diagnosis Comments PROVATION COLONOSCOPY Routine 05/05/2023 8:40 AM EDT from Last 3 Months or Most Recently Relevant to Health Maintenance Results * Colonoscopy Report (05/05/2023 8:40 AM EDT) Narrative SYSTEMGENERATED, DOCUMENTATION - 05/05/2023 8:40 AM EDT This order has been auto-finalized for image and report archival in PACs. *For full report details, please reach out to your physician. This image is visible to you in MyChart.* Edwige Matthews MD IMG OR IMG ORDERABLES Jenny rhodes Result from Last 3 Months or Most Recently Relevant to Health Maintenance Insurance Care Teams Team Otr Truck Driver Relationship Specialty Start Date End Date Haley Burrell APRN-DARSHANA [address] [id number] PCP - General Family Medicine 12/05/23
--- OUTSIDE RECORDS SUMMARY | 2025-01-29 12:23 | XMS_ITS | Encounter Summary ---
Author Organization [facility] [employer] [facility] tem Address [id number] [address] [place] [address] Care Team Providers Care Manager Investment Banking Name Role Phone Yennileonardohalle Haley Manju GALVAN-SPRAY BOOTH OPERATOR Primary Care Pro vider Reason for Visit * Reason Onset Date Comments Pain, MRI 01/13/2022 Encounter Details Date Type Department Care Team (Late st Contact Info) Description 01/13/2022 Telephone [facility] Management [facility] [address] [place] [phone] Yamile Hirsch RN Pain, MRI Social History Tobacco Use Types Packs/Day Years [...] Exposure Response Date Recorded In the last month, have you been in contact with someone who was confirmed or suspected to have Coronavirus / COVID-19? No / Unsure 01/11/2022 8:21 AM EDT documented as of this encounter Miscellaneous Notes * Telephone Encounter - Yamile Hirsch RN - 01/13/2022 2:31 PM EDT Patient calls with concerns of being seen post cervical MRI that was completed on 01/11/22 with a follow up scheduled 02/10; she is having an increase in pain. She is taking the Naproxen and OTC Tylenol Arthritis and using Voltaren Gel with some relief. Encouraged patient to try alternating ice/heat.Patient placed on the cancellation list * Telephone Encounter - ONEIDA Banda - 01/13/2022 2:31 PM EDT Noted. Can move up if availability arises documented in this encounter Plan of Treatment Not on file documented as of this encounter Visit Diagnoses Not on filedocumented in this encounter Additional Health Concerns Infection Onset Date Last Indicated Resolved Time COVID-19 Rule-Out 04/04/2023 04/04/2023 04/04/2023 1:59 PM EDT COVID-19 Rule-Out 12/05/2023 12/05/2023 12/05/2023 1:42 PM EDT documented as of this encounter Care Teams Manager Investment Banking Relationship Specialty Start Date End Date Haley Burrell APRN-DARSHANA [address] [place] [address] PCP - General Family Medicine 12/05/23 documented as of this encounter
--- OUTSIDE RECORDS SUMMARY | 2025-01-29 12:23 | XMS_ITS | Encounter Summary ---
Author Organization [facility] Address [address] [facility] [place] [address] Care Team Providers Care Cruise Consultant Name Role Phone Marta Doss MD Primary Care Provider [phone] Encounter Details Date Type Department Care Team ([facility] Contact Info) Description 08/17/2024 Orders Only [facility] [address] [place] [address] Marta Doss MD [address] [place], [place] [phone] Social History Tobacco Use Types Packs/Day Years [...] Upcoming Encounters Date Type Department Care Team ([facility] Contact Info) Description 02/17/2025 8:30 AM EDT Office Visit [facility] [address] [facility] [place] [phone] Liseth Vargas PA [address] [facility] [address] [place], [place] [phone] documented as of this encounter Goals Goal [...] SCREENING - OU - BOTH EYES Routine 07/04/2022 3:38 PM EST documented in this encounter Results * Diabetic Retinopathy Screening - OU - Both Eyes (07/04/2022 3:38 PM EST) Anatomical Region Laterality Modality Head Other us Marta Doss MD OPHTH PHOTOGRAPHY Final Resul t documented in this encounter Visit Diagnoses Not on filedocumented in this encounter Additional Health Concerns Active Problems Noted Date Diagnosed Date Patient on antidepressant monitoring plan 2024 Baseline PHQ-9 07/31/2024 documented as of this encounter Care Teams Cruise Consultant Relationship Specialty Start Date End Date Marta Doss MD [address] [place] [address] PCP - General Family Medicine 10/26/23 documented as of this encounter
--- NOTE | 2025-01-29 12:25 | ECG_ITS ---
[facility] Test Date: 2025-01-29 Pat Name: ТАТЬЯНА GRIFFITH Department: Room: - Gender: Female Stockroom Inventory Clerk: : 1965 Requested By: DANIEL RAMÍREZ Order Number: [id number] Reading MD: VALERIANO SAN Measurements Intervals [place] Rate: 57 P: 36 MS: 136 QRS: 32 QRSD: 77 T: 49 QT: 445 QTc: 436 Interpretive Statements SINUS BRADYCARDIA No previous ECG available for comparison Electronically Signed On 01-30-2025 9:53:15 EDT by VALERIANO SAN
--- NOTE | 2025-01-29 13:11 | PM.PRESUREVA ---
History of Present Illness History of Present Illness Chief complaint: Pelvic Pain, Leiomyoma, Dyspareunia Narrative: Patient presents for presurgical testing. Please see HPI from Dr. Ayala dated January 09, 2025. Review of Systems ROS Narrative Please see ROS from Dr. Ayala dated January 09, 2025. [facility] Medical History (Updated 01/29/25 @ 12:49 by Nadja Reina NP) Gastroenteritis (01/22/25) ?K52.9 - Noninfective gastroenteritis and colitis, unspecified (ICD-10) Bronchitis ?J40 - Bronchitis, not specified as acute or chronic (ICD-10) Postmenopausal bleeding ?N95.0 - Postmenopausal bleeding (ICD-10) Leiomyoma ?D21.9 - Benign neoplasm of connective and other soft tissue, unspecified (ICD-10) Dyspareunia Pelvic pain ?R10.2 - Pelvic and perineal pain (ICD-10) Hypertension ?I10 - Essential (primary) hypertension (ICD-10) High cholesterol ?E78.00 - Pure hypercholesterolemia, unspecified (ICD-10) Hypothyroidism ?E03.9 - Hypothyroidism, unspecified (ICD-10) Endometriosis ?N80.9 - Endometriosis, unspecified (ICD-10) Menopause ?Z78.0 - Asymptomatic menopausal state (ICD-10) Surgical History (Updated 01/29/25 @ 12:48 by aNdja Reina NP) History of radiofrequency ablation (RFA) of nerve of lumbar spine ?Z98.890 - Other specified postprocedural states (ICD-10) History of radiofrequency ablation (RFA) of nerve of cervical spine ?Z98.890 - Other specified postprocedural states (ICD-10) History of colonoscopy ?Z98.890 - Other specified postprocedural states (ICD-10) History of endometrial ablation ?Z98.890 - Other specified postprocedural states (ICD-10) History of tubal ligation ?Z98.51 - Tubal ligation status (ICD-10) History of laparoscopy ?Z98.890 - Other specified postprocedural states (ICD-10) History of section ?Z98.891 - History of uterine scar from previous surgery (ICD-10) Family History (Updated 01/29/25 @ 12:48 by Nadja Reina NP) Other Family history of diabetes mellitus Family history of heart disease Family history of hypertension Family history of skin cancer Social History (Updated 01/29/25 @ 12:42 by Nadja Reina NP) Within the past year, how often did you have a drink containing alcohol: 2-4 times a month Smoking status: Never smoker Non-prescribed substance use: denies use Previous occupational history: Sales Highest level of school completed/degree received: high school graduate Meds Home Medications and Allergies Home Medications ?Medication ?Instructions ?Recorded ?Confirmed ?Type atorvastatin 80 mg tablet 80 mg PO DAILY 01/29/25 01/29/25 History ezetimibe 10 mg tablet 10 mg PO DAILY 01/29/25 01/29/25 History levothyroxine 150 mcg capsule 150 mcg PO DAILY 01/29/25 01/29/25 History lisinopril 20 1 tab PO DAILY 01/29/25 01/29/25 History mg-hydrochlorothiazide 25 mg tablet paroxetine HCl 10 mg tablet 10 mg PO DAILY 01/29/25 01/29/25 History Allergies Allergy/AdvReac Type Severity Reaction Status Date / Time No Known Drug Allergies Allergy Verified 01/29/25 12:40 Exam Narrative Exam Narrative: Constitutional: Awake, alert, comfortable, well-appearing, nontoxic, interactive, vital signs as charted Head: Normocephalic, atraumatic Neck: Supple, normal appearance, normal range of motion, no meningeal signs, no lymphadenopathy Respiratory: No respiratory distress, breath sounds clear Cardiovascular: Regular rate and rhythm, strong and regular heart tones Abdomen: Nontender, normal bowel sounds, soft, no CVA tenderness Musculoskeletal: Normal gait, no swelling or edema Skin: No rashes or induration, no lesions, only visible skin inspected Neuro: No neurological deficits, normal sensation Psychiatric: Oriented ?3, normal affect Assessment and Plan Assessment and Plan (1) Pelvic pain: (2) Dyspareunia: (3) Leiomyoma: Plan Diagnostic laparoscopy, possible NAVEED, possible FOE, possible BSO, D&C hysteroscopy, possible MyoSure scheduled with Dr. Ayala February 07, 2025.
[2025-01-29 13:20] LABS: Anion Gap 16.4; Blood Urea Nitrogen 16.0 mg/dL (7.0-18.0); Calcium 9.2 mg/dL (8.5-10.1); Carbon Dioxide 27.7 mmol/L (21.0-32.0); Chloride 97 mmol/L (98-107); Estimated GFR (African America >60 (>=60 mL/min/1.73m^2); Estimated GFR (Non-African Ame 52 (>=60 mL/min/1.73m^2); Glucose 111 mg/dL (74-106); Potassium 3.1 mmol/L (3.5-5.1); Sodium 138 mmol/L (136-145)
== END 2025-01-29 12:20 | disposition home or self-care (01) ==
LOC: PST 12:21
PROVIDERS: PCP Nurse Practitioner Family; Visit Provider Obstetrics & Gynecology
DX: Z01.810 Encounter for preprocedural cardiovascular examination (principal); Z01.812 Encounter for preprocedural laboratory examination; Z01.818 Encounter for other preprocedural examination; R10.2 Pelvic and perineal pain; D25.1 Intramural leiomyoma of uterus; D25.0 Submucous leiomyoma of uterus; N94.10 Unspecified dyspareunia
CPT/HCPCS: 36415; 80048; 93005; G0463

== ENCOUNTER 2025-02-07 07:23 | Day surgery (SDC) | payer OTHER, SELFPAY ==
--- OUTSIDE RECORDS SUMMARY | 2025-01-27 15:30 | XMS_ITS | Encounter Summary ---
Author Organization [facility] Healthcare Address [address] [place] [address] Care Team Providers Care Seed Packer Name Role Phone Marta Doss MD Primary Care Provider [phone] Reason for Referral * Imaging (Stat) - Closed Specialty Diagnoses / Procedures Referred By Contamber t Referred To Contact Radiology Diagnoses Continuous severe abdominal pain Nausea and vomiting, unspecified vomiting type Black tarry stools Procedures CT abdomen pelvis wo IV contrast Haley Burrell NP Phone: tel: [facility] FNR [address] [facility] [address] [place] [address] Phone: tel: fax: Referral ID Status Reason Start Date Expiration Date Visits Re quested Visits Authorized [id number] Closed 01/27/2025 07/26/2025 1 1 Reason for Visit * Reason Comments Pain Encounter Details Date Type Department Care Team ([facility] Contact Info) Description 01/27/2025 3:30 PM EDT Office Visit [facility] FNR FM [address] [place] [address] Haley Burrell NP [address] [address] [place] [address] Continuous severe abdominal pain (Primary Dx); Nausea and vomiting, unspecified vomiting type; Black tarry stools Social History Tobacco Use Types Packs/Day Years [...] Sign Reading Time Taken Comments Blood Pressure 116/72 01/27/2025 3:31 PM EDT Pulse 72 01/27/2025 3:31 PM EDT Temperature - - Respiratory Rate 18 01/27/2025 3:31 PM EDT Oxygen Saturation 98% 01/27/2025 3:31 PM EDT Inhaled Oxygen Concentration - - Weight 73.9 kg (163 lb) 01/27/2025 3:31 PM EDT Height 160 cm (5' 3 ) 01/27/2025 3:31 PM EDT Body Mass Index 28.87 01/27/2025 3:31 PM EDT documented in this encounter Progress Notes * Haley Burrell, SANJAY - 01/27/2025 3:30 PM EDT Images from the original note were not included. Rekha Dennis is a 59 y.o. female presents with chief complaint of Pain HPI: HPI History of Present Illness The patient presents for evaluation of vomiting. She continues to experience vomiting, with her diet limited to four saltine crackers and a piece oftoast since Monday. An attempt to consume chicken noodle soup resulted in immediate projectile vomiting. She has been able to tolerate water and zero-sugar fruit punch Gatorade, consuming four small bottles of the latter today along with two bottles of water. She has not attempted to eat any other food. She spent the entire weekend bedridden due to her condition. She is concerned about potential job loss due to her frequent absences caused by this issue. She has completed her course of Zofran, which provided temporary relief until it wore off. This pattern of symptoms occurs approximately every other month, but she usually manages to control it within a day or so. However, this episode has been particularly severe, with her unable to retain any food or drink. She reports no history of acid reflux. She also reports intermittent black diarrhea. Additionally, she experiences sharp, needle-like pains in her ribs. SUBJECTIVE: MEDICATIONS: Current Outpatient Medications Medication Instructions atorvastatin (Lipitor) 80 MG tablet TAKE ONE TABLET BY MOUTH EVERY DAY AT THE same time estradiol (Estrace) 0.1 MG/GM vaginal cream 2g vaginal daily for 2 weeks, then 2 times weekly following initial 2 weeks ezetimibe (ZETIA) 10 mg, Oral, Daily levothyroxine (Synthroid, Levoxyl) 150 MCG tablet TAKE ONE TABLET BY MOUTH IN THE MORNING ON AN EMPTY STOMACH lisinopril-hydroCHLOROthiazide 20-25 MG tablet 1 tablet, Oral, Every morning ondansetron (ZOFRAN) 8 mg, Oral, Every 8 hours PRN PARoxetine (PAXIL) 10 mg, Oral, Every morning traZODone (DESYREL) 50 mg, Oral, Nightly I have reviewed and reconciled the history and medication list with the patient today. REVIEW OF SYMPTOMS: Review of Systems Constitutional: Negative. HENT: Negative. Respiratory: Negative for cough, shortness of breath and wheezing. Cardiovascular: Negative for chest pain. Gastrointestinal: Positive for abdominal pain, diarrhea, nausea and vomiting. Genitourinary: Negative. Musculoskeletal: Negative. Skin: Negative. Neurological: Negative. OBJECTIVE: Visit Vitals BP 116/72 Pulse 72 Resp 18 Ht 5' 3 Wt 163 lb SpO2 98% BMI 28.87 kg/m?? OB Status Postmenopausal Smoking Status Never BSA 1.81 m?? Physical Exam Vitals and nursing note reviewed. [...] breath sounds. Abdominal: General: Bowel sounds are increased. Palpations: Abdomen is soft. Tenderness: There is abdominal tenderness in the right upper quadrant, epigastric area and left upper quadrant. There is no right CVA tenderness or left CVA tenderness. Musculoskeletal: Cervical back: Normal range of motion and neck supple. Neurological: Mental Status: She is alert. ASSESSMENT AND PLAN: Assessment/Plan Diagnoses and all orders for this visit: Continuous severe abdominal pain - Lipase; Future - Amylase; Future - CT abdomen pelvis wo IV contrast; Future Nausea and vomiting, unspecified vomiting type - Lipase; Future - Amylase; Future - Comprehensive metabolic panel; Future - CBC and differential; Future - CT abdomen pelvis wo IV contrast; Future Black tarry stools - CBC and differential; Future - Occult blood x 1, stool; Future - Stool culture; Future - H. pylori antigen, stool; Future - CT abdomen pelvis wo IV contrast; Future Assessment & Plan 1. Vomiting. - Persistent vomiting, inability to keep food down, and projectile vomiting after consuming chickennoodle soup. - Able to tolerate water and zero sugar fruit punch Gatorade. - Blood work ordered to check electrolytes, amylase, lipase, and blood counts. - CT scan of the abdomen and stool tests for H. pylori infection, other infectious agents, and occult blood will be conducted. 2. Abdominal pain. - Sharp pains in the ribs, described as feeling like needles, severe enough to keep her bedridden over the weekend. - Physical exam findings include tenderness in the upper abdomen. - CT scan of the abdomen ordered to determine the cause of the pain. - Blood work and ultrasound of the right upper quadrant will be performed. 3. Black diarrhea. - Reports having black diarrhea intermittently. - Stool tests ordered to check for H. pylori infection, other infectious agents, and occult blood. - CT scan of the abdomen will help assess the cause of the black diarrhea. - Blood work will be conducted to evaluate overall health and potential causes. documented in this encounter Plan of Treatment Upcoming Encounters Date Type Department Care Team (Late st Contact Info) Description 02/17/2025 8:30 AM EDT Office Visit [facility] OB [address] [facility] [place] [id number] Liseth Vargas PA [address] [place] [address] Scheduled Orders Name Type Priority Associated Diagnoses Orde r Schedule Stool culture Microbiology Routine Black tarry stools Expected: 01/27/2025 (Approximate), Expires: 01/27/2026 H. pylori antigen, stool Lab Routine Black tarry stools Expected: 01/27/2025 (Approximate), Expires: 01/27/2026 documented as of this encounter Goals Goal Patient Goal Type Associated Problems Recent Progress Patient-Stated? Author Help patient manage antidepressant medication Care Plan Patient on antidepressant monitoring plan No Alfreda Mann NP Baseline PHQ-9 Care Plan Baseline PHQ-9 No Alfreda Mann NP documented as of this encounter Procedures Procedure Name Priority Date/Time Associated Diagnosis Comments OCCULT BLOOD X 1, STOOL Routine 01/30/2025 9:33 AM EDT Black tarry stools SALMONELLA/SHIGELLA CULT, CAMPY EIA AN DSHIGA TOXIN W/RFL E.COLI 0157 CULT Routine 01/29/2025 2:19 PM EDT CBC (INCLUDES DIFF/PLT) Routine 01/27/2025 3:54 PM EDT Nausea and vomiting, unspecified vomiting type Black tarry stools LIPASE Routine 01/27/2025 3:54 PM EDT Continuous severe abdominal pain Nausea and vomiting, unspecified vomiting type AMYLASE Routine 01/27/2025 3:54 PM EDT Continuous severe abdominal pain Nausea and vomiting, unspecified vomiting type COMPREHENSIVE METABOLIC PANEL Routine 01/27/2025 3:54 PM EDT Nausea and vomiting, unspecified vomiting type documented in this encounter Results * Occult blood x 1, stool (01/30/2025 9:33 AM EDT) MICRO NUMBER [id number] [facility] SPECIMEN QUALITY Adequate [facility] SOURCE INSURE (TM) FOBT TEST CARD [facility] STATUS FINAL [facility] FECAL GLOBIN RESULT SEE NOTE [facility] Comment: Not Detected Reference Range:Not Detected Test results may be invalid as no date of collection was provided. Specimens are stable for 30 days. COMMENT SEE NOTE [facility] Comment: NOTE: Approved collection includes sample of toilet water adjacent to stool. Other methods of collection such as stool transferred from diaper, bedpan, or commode to toilet water may lead to inaccurate results. NO COLLECTION DATE RECEIVED. WE HAVE USED THE DATE THE SPECIMEN WAS RECEIVED BY THIS LABORATORY THE COLLECTION DATE. IF THIS IS INCORRECT, PLEASE CONTACT CLIENT SERVICES. PHONE NUMBER: [phone] Stool Rectal contents / Unknown 01/29/2025 2:22 PM EDT Narrative Resulting Agency Comment Performing Organization Information Site ID: QPT Name: [employer] [facility] Address: [address] [place] [address], [address] [place] [phone] Director: Juve Zamarripa MD us Haley Burrell FLIGHT TOWER DISPATCHER LAB BODY FLUIDS AND STO OLS ORDERABLES Final Result Performing Organization Address [facility] de Phone Number [facility] * SALMONELLA/SHIGELLA CULT, CAMPY EIA AN DSHIGA TOXIN W/RFL E.COLI 0157 CULT (01/29/2025 2:19 PM EDT) MICRO NUMBER [id number] [facility] SPECIMEN QUALITY Adequate [facility] SOURCE STOOL [facility] STATUS FINAL [facility] CAMPYLOBACTER SPP.AG,EIA SEE NOTE [facility] Comment: Not Detected Reference Range:Not Detected MICRO NUMBER [id number] [facility] SPECIMEN QUALITY Adequate [facility] SOURCE STOOL [facility] STATUS FINAL [facility] SHIGA RESULT SEE NOTE [facility] Comment: Not Detected Reference Range:Not Detected MICRO NUMBER [id number] [facility] SPECIMEN QUALITY Adequate [facility] SOURCE STOOL [facility] STATUS FINAL [facility] RESULT SEE NOTE [facility] Comment: No Salmonella or Shigella isolated 01/29/2025 2:19 PM EDT 01/29/2025 2:19 PM EDT Narrative [facility] - 02/01/2025 12:51 PM EDT SPLIT 01/27/2025 FROM [id number] Resulting Agency Comment Performing Organization Information Site ID: QPT Name: [employer] [facility] Address: [address] [place] [address], [address] [place] [phone] Director: Juve Zamarripa MD us Haley Burrell FLIGHT TOWER DISPATCHER LAB BODY FLUIDS AND STO OLS ORDERABLES Final Result Performing Organization Address [facility] Co de Phone Number [facility] * CT abdomen pelvis wo IV contrast (01/28/2025 9:39 AM EDT) Anatomical Region Laterality Modality Body, Pelvis, Abdomen Computed T omography 01/28/2025 9:59 AM EDT Impressions 01/28/2025 10:10 AM EDT No acute process in the abdomen/pelvis. ELECTRONICALLY SIGNED BY: MD Karissa Sykes 01/28/2025 10:10 AM EDT HISTORY: Upper abdominal pain. Melena. TECHNIQUE: Non-IV contrast imaging of the abdomen and pelvis was performed using standard technique, scanning from just above the dome of the diaphragm to the symphysis pubis. Unenhanced imaging is limited for the evaluation of some intra-abdominal and pelvic pathology. All CT scans at this facility use dose modulation, iterative reconstruction, and/or weight based dosing when appropriate to reduce radiation dose to as low as reasonably achievable. COMPARISON: None. RESULT: Abdomen / Pelvis: Liver: Unremarkable. Biliary: Gallbladder unremarkable. Pancreas: Unremarkable. Spleen: No splenomegaly. Adrenals: No mass. Kidneys: No calculus or hydronephrosis. No suspicious lesions in the unenhanced kidneys. GI Tract: Diverticulosis without evidence for acute diverticulitis. Scattered colonic feces. No evidence for appendicitis. Lymph Nodes: No lymphadenopathy. Mesentery/peritoneum/retroperitoneum: No ascites or mass. Vasculature: No abdominal aortic or iliac artery aneurysm. Pelvis: No free fluid. No mass. Uterus grossly unremarkable. Bladder unremarkable. Bones/Soft Tissues: No acute osseous findings. Degenerative changes. Lower thorax: Unremarkable. Procedure Note Josiah Sol MD - 01/28/2025 HISTORY: Upper abdominal pain. Melena. TECHNIQUE: Non-IV contrast imaging of the abdomen and pelvis was performedusing standard technique, scanning from just above the dome of thediaphragm to the symphysis pubis. Unenhanced imaging is limited for theevaluation of some intra-abdominal and pelvic pathology. All CT scans at this facility use dose modulation, iterativereconstruction, and/or weight based dosing when appropriate to reduceradiation dose to as low as reasonably achievable. COMPARISON: None. RESULT: Abdomen / Pelvis: Liver: Unremarkable. Biliary: Gallbladder unremarkable. Pancreas: Unremarkable. Spleen: No splenomegaly. Adrenals: No mass. Kidneys: No calculus or hydronephrosis. No suspicious lesions in theunenhanced kidneys. GI Tract: Diverticulosis without evidence for acute diverticulitis.Scattered colonic feces. No evidence for appendicitis. Lymph Nodes: No lymphadenopathy. Mesentery/peritoneum/retroperitoneum: No ascites or mass. Vasculature: No abdominal aortic or iliac artery aneurysm. Pelvis: No free fluid. No mass. Uterus grossly unremarkable. Bladderunremarkable. Bones/Soft Tissues: No acute osseous findings. Degenerative changes. Lower thorax: Unremarkable. IMPRESSION: No acute process in the abdomen/pelvis. ELECTRONICALLY SIGNED BY: Josiah Sol MD Haley Burrell FLIGHT TOWER DISPATCHER IMG CT PROCEDURES Final Result * (ABNORMAL) CBC and differential (01/27/2025 3:54 PM EDT) WHITE BLOOD CELL COUNT 10.6 3.8 - 10.8 Thousand/u L [facility] RED BLOOD CELL COUNT 4.40 3.80 - 5.10 Million/uL [facility] HEMOGLOBIN 12.8 11.7 - 15.5 g/dL [facility] HEMATOCRIT 39.4 35.0 - 45.0 % [facility] MCV 89.5 80.0 - 100.0 fL [facility] MCH 29.1 27.0 - 33.0 pg [facility] MCHC 32.5 32.0 - 36.0 g/dL [facility] Comment: For adults, a slight decrease in the calculated MCHC value (in the range of 30 to 32 g/dL) is most likely not clinically significant; however, it should be interpreted with caution in correlation with other red cell parameters and the patient's clinical condition. RDW 13.0 11.0 - 15.0 % [facility] PLATELET COUNT 436(H) 140 - 400 Thousand/u L [facility] MPV 9.5 7.5 - 12.5 fL [facility] ABSOLUTE NEUTROPHILS 6,763 1,500 - 7,800 cells/uL [facility] ABSOLUTE LYMPHOCYTES 2,926 850 - 3,900 cells/uL [facility] ABSOLUTE MONOCYTES 816 200 - 950 cells/uL [facility] ABSOLUTE EOSINOPHILS 21 15 - 500 cells/uL [facility] ABSOLUTE BASOPHILS 74 0 - 200 cells/uL [facility] NEUTROPHILS 63.8 % [facility] LYMPHOCYTES 27.6 % [facility] MONOCYTES 7.7 % [facility] EOSINOPHILS 0.2 % [facility] BASOPHILS 0.7 % [facility] Blood Venous blood specimen / Unknown 01/27/2025 3:54 PM EDT 01/27/2025 3:55 PM EDT Narrative [facility] - 01/28/2025 4:41 AM EDT COLLECTION KIT GIVEN TO PATIENT. PATIENT ADVISED TO RETURN. Resulting Agency Comment Performing Organization Information Site ID: QPT Name: [facility] Address: [address] [place] [address], [address] [place] [phone] Director: Juve Zamarripa MD Haley Burrell FLIGHT TOWER DISPATCHER LAB BLOOD ORDERABLES Fi nal Result [facility] * (ABNORMAL) Comprehensive metabolic panel (01/27/2025 3:54 PM EDT) Glucose 107(H) 65 - 99 mg/dL [facility] Comment: Fasting reference interval For someone without known diabetes, a glucose value between 100 and 125 mg/dL is consistent with prediabetes and should be confirmed with a follow-up test. BUN 22 7 - 25 mg/dL [facility] Creatinine 1.13(H) 0.50 - 1.03 mg/dL [facility] EGFR 56(L) > OR = 60 mL/min/1.7 3m2 [facility] BUN/CREATININE RATIO 19 6 - 22 (calc) [facility] Sodium 136 135 - 146 mmol/L [facility] Potassium, Bld 3.1(L) 3.5 - 5.3 mmol/L [facility] Chloride 96(L) 98 - 110 mmol/L [facility] Carbon Dioxide 28 20 - 32 mmol/L [facility] Calcium 9.5 8.6 - 10.4 mg/dL [facility] PROTEIN, TOTAL 6.5 6.1 - 8.1 g/dL [facility] ALBUMIN 4.5 3.6 - 5.1 g/dL [facility] GLOBULIN 2.0 1.9 - 3.7 g/dL (calc) [facility] ALBUMIN/GLOBULIN RATIO 2.3 1.0 - 2.5 (calc) [facility] BILIRUBIN, TOTAL 0.6 0.2 - 1.2 mg/dL [facility] ALKALINE PHOSPHATASE 53 37 - 153 U/L [facility] AST 11 10 - 35 U/L [facility] ALT 9 6 - 29 U/L [facility] Blood Venous blood specimen / Unknown 01/27/2025 3:54 PM EDT 01/27/2025 3:55 PM EDT Narrative [facility] - 01/28/2025 4:41 AM EDT COLLECTION KIT GIVEN TO PATIENT. PATIENT ADVISED TO RETURN. Resulting Agency Comment Performing Organization Information Site ID: QPT Name: [employer] [facility] Address: [address] [place] [address], [address] [place] [phone] Director: Juve Zamarripa MD us Haley A Indra FLIGHT TOWER DISPATCHER LAB BLOOD ORDERABLES Fi nal Result Performing Organization Address [facility] de Phone Number [facility] * Amylase (01/27/2025 3:54 PM EDT) AMYLASE 44 21 - 101 U/L [facility] Blood Venous blood specimen / Unknown 01/27/2025 3:54 PM EDT 01/27/2025 3:55 PM EDT Narrative [facility] - 01/28/2025 4:41 AM EDT COLLECTION KIT GIVEN TO PATIENT. PATIENT ADVISED TO RETURN. Resulting Agency Comment Performing Organization Information Site ID: QPT Name: [employer] [facility] Address: [address] [place] [address], [address] [place] [address] Director: Juve Zamarripa MD us Haley A [place] FLIGHT TOWER DISPATCHER LAB BLOOD ORDERABLES Fi nal Result Performing Organization Address [facility] de Phone Number [facility] * Lipase (01/27/2025 3:54 PM EDT) LIPASE 54 7 - 60 U/L [facility] Blood Venous blood specimen / Unknown 01/27/2025 3:54 PM EDT 01/27/2025 3:55 PM EDT Narrative [facility] - 01/28/2025 4:41 AM EDT COLLECTION KIT GIVEN TO PATIENT. PATIENT ADVISED TO RETURN. Resulting Agency Comment Performing Organization Information Site ID: QPT Name: [employer] [facility] Address: [address] [place] [address], [address] [place] [phone] Director: Juve Zamarripa MD us Haley A [place] FLIGHT TOWER DISPATCHER LAB BLOOD ORDERABLES Fi nal Result [facility] documented in this encounter Visit Diagnoses Diagnosis Continuous severe abdominal pain- Primary Nausea and vomiting, unspecified vomiting type Black tarry stools Continuous severe abdominal pain Nausea and vomiting, unspecified vomiting type Black tarry stools documented in this encounter Additional Health Concerns Active Problems Noted Date Diagnosed Date Patient on antidepressant monitoring plan 2024 Baseline PHQ-9 07/31/2024 Assessment Noted Time PHQ-9 Depression Total Score: 0 12/24/19 25 11:54 AM EDT documented as of this encounter Care Teams Seed Packer Relationship Specialty Start Date End Date Marta Doss MD [address] [place] [address] PCP - General Family Medicine 10/26/23 documented as of this encounter
--- OUTSIDE RECORDS SUMMARY | 2025-01-28 09:30 | XMS_ITS | Encounter Summary ---
Author Organization [facility] Healthcare Address [address] [place] [address] Care Team Providers Care Sand System Operator Name Role Phone Marta Doss MD Primary Care Provider [phone] Reason for Visit * Imaging (Stat) - Closed Specialty Diagnoses / Procedures Referred By Contamber t Referred To Contact Radiology Diagnoses Continuous severe abdominal pain Nausea and vomiting, unspecified vomiting type Black tarry stools Procedures CT abdomen pelvis wo IV contrast Haley Burrell NP Phone: tel: [facility] [address] [facility] [address] [place] [address] Phone: tel: fax: Referral ID Status Reason Start Date Expiration Date Visits Re quested Visits Authorized [id number] Closed 01/27/2025 07/26/2025 1 1 Encounter Details Date Type Department Care Team (Latest Contact Info) Description 01/28/2025 9:30 AM EDT Ancillary Procedure [facility] [address] [facility] [address] [place] [address] Continuous severe abdominal pain; Nausea and vomiting, unspecified vomiting type; Black [...] on file documented as of this encounter Plan of Treatment Upcoming Encounters Date Type Department Care Team (Late st Contact Info) Description 02/17/2025 8:30 AM EDT Office Visit [facility] [address] [facility] [place] [address] Liseth Vargas PA [address] [facility] [place] [address] documented as of this encounter Goals Goal Patient Goal Type Associated Problems Recent Progress Patient-Stated? Author Help patient manage antidepressant medication Care Plan Patient on antidepressant monitoring plan No Alfreda Mann NP Baseline PHQ-9 Care Plan Baseline PHQ-9 No Alfreda Mann NP documented as of this encounter Procedures Procedure Name Priority Date/Time Associated Diagnosis Comments CT ABDOMEN PELVIS WO IV CONTRAST STAT 01/28/2025 9:39 AM EDT Continuous severe abdominal pain Nausea and vomiting, unspecified vomiting type Black tarry stools documented in this encounter Results * CT abdomen pelvis wo IV contrast (01/28/2025 9:39 AM EDT) Anatomical Region Laterality Modality Body, Pelvis, Abdomen Computed T omography 01/28/2025 9:59 AM EDT Impressions 01/28/2025 10:10 AM EDT No acute process in the abdomen/pelvis. ELECTRONICALLY SIGNED BY: Josiah Sol MD Narrative 01/28/2025 10:10 AM EDT HISTORY: Upper abdominal [...] Burrell NP IMG CT PROCEDURES Final Result documented in this encounter Visit Diagnoses Diagnosis Continuous severe abdominal pain Nausea and vomiting, unspecified vomiting type Black tarry stools documented in this encounter Additional Health Concerns Active Problems Noted Date Diagnosed Date Patient on antidepressant monitoring plan 2024 Baseline PHQ-9 07/31/2024 Assessment Noted Time PHQ-9 Depression Total Score: 0 12/24/19 25 11:54 AM EDT documented as of this encounter Care Teams Sand System Operator Relationship Specialty Start Date End Date Marta Doss MD [address] [place] [address] PCP - General Family Medicine 10/26/23 documented as of this encounter
[2025-01-29 13:01] VITALS: BP 124/80; PULSE 64; TEMP 36.3; O2SAT 97; BMI 27.9
[2025-02-07] VITALS (9 sets, daily range): BP systolic 124–159; BP diastolic 75–106; PULSE 65–90; TEMP 35.8–36.1; O2SAT 96–100
--- OUTSIDE RECORDS SUMMARY | 2025-02-07 07:25 | XMS_ITS | Encounter Summary ---
Author Organization [facility] Address [address] [facility] [place] [address] Care Team Providers Care Public Relations Assistant Name Role Phone Marta Doss MD Primary Care Provider [phone] Encounter Details Date Type Department Care Team (Late Contact Info) Description 01/29/2025 Telephone [facility] [address] [place] [address] [place] [address] Chayito Banks LPN Social History Tobacco Use Types Packs/Day Years [...] encounter Miscellaneous Notes * Telephone Encounter - Chayito Banks LPN - 01/29/2025 4:48 PM EDT Chantell from [facility] called and wanted provider to be aware that patients potassium level was at 3.1 today. Patients surgery is scheduled for the --please advise of plan of care and patient will be notified. Thanks, Chayito Gibbs LPN documented in this encounter Plan of Treatment Upcoming Encounters Date Type Department Care Team (Late Contact Info) Description 02/17/2025 8:30 AM EDT Office Visit [facility] [address] [facility] [place] [address] Liseth Vargas PA [address] [facility] [place] [address] documented as of this encounter Goals Goal [...] documented as of this encounter Care Teams Public Relations Assistant Relationship Specialty Start Date End Date Marta Doss MD [address] [place] [address] PCP - General Family Medicine 10/26/23 documented as of this encounter
--- OUTSIDE RECORDS SUMMARY | 2025-02-07 07:25 | XMS_ITS | Encounter Summary ---
Author Organization [facility] Address [address] [place] [address] Care Team Providers Care Safety Representative Name Role Phone Marta Doss MD Primary Care Provider [phone] Encounter Details Date Type Department Care Team ([facility] Contact Info) Description 01/30/2025 Abstract [facility] OB [address] [facility] [place] [address] Carla Zendejas MA Social History Tobacco Use Types Packs/Day [...] Upcoming Encounters Date Type Department Care Team ([facility] Contact Info) Description 02/17/2025 8:30 AM EDT Office Visit [facility] OB [address] [facility] [place] [address] Liseth Vargas PA [address] [place] [address] [place], [place] [phone] documented as of this encounter Goals Goal [...] documented as of this encounter Care Teams Safety Representative Relationship Specialty Start Date End Date Marta Doss MD [address] [place] [address] PCP - General Family Medicine 10/26/23 documented as of this encounter
--- OUTSIDE RECORDS SUMMARY | 2025-02-07 07:25 | XMS_ITS | Encounter Summary ---
Author Organization [facility] Address [address] [place] [address] Care Team Providers Care Home Health Physical Therapist Name Role Phone Marta Doss MD Primary Care Provider [phone] Encounter Details Date Type Department Care Team (Late Contact Info) Description 11/27/2024 Results Follow-Up [facility] OB [address] [place] [address] Marta Blandon MA Social History [...] Upcoming Encounters Date Type Department Care Team ([facility] Contact Info) Description 02/17/2025 8:30 AM EDT Office Visit [facility] [address] [facility] [place] [phone] Liseth Vargas PA [address] [facility] [place] [address] documented as of this encounter Goals Goal [...] documented as of this encounter Care Teams Home Health Physical Therapist Relationship Specialty Start Date End Date Marta Doss MD [address] [place] [address] PCP - General Family Medicine 10/26/23 documented as of this encounter
--- OUTSIDE RECORDS SUMMARY | 2025-02-07 07:25 | XMS_ITS | Encounter Summary ---
Author Organization [facility] Address [address] [place] [address] Care Team Providers Care Machine Design Engineer Name Role Phone Karla Alba DO Primary Care Provider [phone] Marta Doss MD Primary Care Provider [phone] Encounter Details Date Type Department Care Team (Late Contact Info) Description 08/02/2023 Orders Only [facility] FM [address] [place] [address] Karla Alba DO [address] [facility] 200 [place] [address] Social History Tobacco Use Types [...] Visit [facility] BCP OB [address] [facility] [place] [address] Liseth Vargas PA [address] [facility] [place] [address] documented as of this encounter Procedures Procedure Name Priority Date/Time Associated Diagnosis Comments HM COLONOSCOPY Routine 05/05/2023 1:12 PM EDT documented in this encounter Results * Hm Colonoscopy (05/05/2023 1:12 PM EDT) Anatomical Region Laterality Modality Other Karla Alba DO HEALTH MAINTENANCE Final Result documented in this encounter Visit Diagnoses Not on filedocumented in this encounter Care Teams Machine Design Engineer Relationship Specialty Start Date End Date Karla Alba DO PCP - General Family Medicine 11/29/22 10/25/23 Marta Doss MD [address] [place] [address] PCP - General Family Medicine 10/26/23 documented as of this encounter
--- OUTSIDE RECORDS SUMMARY | 2025-02-07 07:25 | XMS_ITS | Encounter Summary ---
Author Organization [facility] Address [address] [facility] [place] [address] Care Team Providers Care Billiard Parlor Manager Name Role Phone Marta Doss MD Primary Care Provider [phone] Encounter Details Date Type Department Care Team ([facility] Contact Info) Description 08/17/2024 Orders Only [facility]NR [address] [place] [address] Marta Doss MD [address] [place], [place] [phone] Social History Tobacco Use Types Packs/Day Years [...] Upcoming Encounters Date Type Department Care Team ([facility] Contact Info) Description 02/17/2025 8:30 AM EDT Office Visit [facility] BCP OB [address] [facility] [phone] Liseth Vargas PA [address] [facility] [address] [place], [place] [id number] documented as of this encounter Goals Goal [...] documented as of this encounter Care Teams Billiard Parlor Manager Relationship Specialty Start Date End Date Marta Doss MD [address] [place] [address] PCP - General Family Medicine 10/26/23 documented as of this encounter
--- OUTSIDE RECORDS SUMMARY | 2025-02-07 07:25 | XMS_ITS | Encounter Summary ---
Author Organization [facility] Address [address] [facility] [place] [address] Care Team Providers Care Supervisor Detasseling Crew Name Role Phone Karla Alba DO Primary Care Provider [phone] Marta Doss MD Primary Care Provider [phone] Encounter Details Date Type Department Care Team (Late Contact Info) Description 05/05/2023 Abstract [facility]NR [address] [place] [address] Karla Alba DO 1715 [facility] 200 [place] [address] Social History Tobacco Use Types [...] [address] [facility] [place] [address] Liseth Vargas PA [address] [facility] [address] [place], [place] [phone] documented as of this encounter Visit Diagnoses Not on filedocumented in this encounter Care Teams Supervisor Detasseling Crew Relationship Specialty Start Date End Date Karla Alba GudeliaDO PCP - General Family Medicine 11/29/22 10/25/23 Marta Doss MD [address] [place] [address] PCP - General Family Medicine 10/26/23 documented as of this encounter
--- OUTSIDE RECORDS SUMMARY | 2025-02-07 07:25 | XMS_ITS | Encounter Summary ---
Author Organization [facility] Address [address] [facility] [place] [address] Care Team Providers Care Hospitality Team Member Name Role Phone Marta Doss MD Primary Care Provider [phone] Encounter Details Date Type Department Care Team ([facility] Contact Info) Description 11/29/2024 Orders Only [facility] FNR [address] [place] [address] Marta Doss MD [address] [place], [place] [phone] Social History Tobacco Use Types Packs/Day Years [...] Upcoming Encounters Date Type Department Care Team ([facility] Contact Info) Description 02/17/2025 8:30 AM EDT Office Visit [facility] BCP OB [address] [place] [phone] Liseth Vargas PA [address] [facility] [address] [place], [place] [phone] documented as of this encounter Goals Goal [...] documented as of this encounter Care Teams Hospitality Team Member Relationship Specialty Start Date End Date Marta Doss MD [address] [place] [address] PCP - General Family Medicine 10/26/23 documented as of this encounter
--- OUTSIDE RECORDS SUMMARY | 2025-02-07 07:25 | XMS_ITS | Encounter Summary ---
Author Organization [facility] Address [address] [place] [address] Care Team Providers Care Leach Cell Operator Name Role Phone Parth, Karla Galeas DO Primary Care Provider [phone] Marta Doss MD Primary Care Provider [phone] Encounter Details Date Type Department Care Team (Late st Contact Info) Description 12/26/[address] [facility] [address] [facility] 150 [place] [phone] Олег Pena DO 7[address] [facility] 150 [place] [address] Social History Tobacco Use Types Packs/Day Years [...] EDT Office Visit [facility] BCP OB [address] [place] [address] Liseth Vargas PA [address] [facility] [place] [address] documented as of this encounter Visit Diagnoses Not on filedocumented in this encounter Care Teams Leach Cell Operator Relationship Specialty Start Date End Date Karla Alba DO PCP - General Family Medicine 11/29/22 10/25/23 Marta Doss MD [address] [place] [address] PCP - General Family Medicine 10/26/23 documented as of this encounter
--- OUTSIDE RECORDS SUMMARY | 2025-02-07 07:25 | XMS_ITS | Encounter Summary ---
Author Organization [facility] Address [address] [facility] [place] [address] Care Team Providers Care Computational Linguist Name Role Phone Marta Doss MD Primary Care Provider [phone] Encounter Details Date Type Department Care Team (Late Contact Info) Description 01/29/2025 Clinisync Result Encounter [facility] External Department Unsolicited Lam Ayala DO [address] [facility] [address] Rogelio Red, [facility] Social History Tobacco Use Types Packs/Day Years [...] EDT Office Visit [facility] BCP OB [address] [facility] [place] [address] Liseth Vargas PA [address] [facility] [address] [place], [place] [phone] documented as of this encounter Goals Goal Patient Goal Type Associated Problems Recent Progress Patient-Stated? Author Help patient manage antidepressant medication Care Plan Patient on antidepressant monitoring plan No Alfreda Mann NP Baseline PHQ-9 Care Plan Baseline PHQ-9 No Alfreda Mann NP documented as of this encounter Procedures Procedure Name Priority Date/Time Associated Diagnosis Comments ALL BASIC METABOLIC PANEL Routine 01/29/2025 1:00 PM EDT documented in this encounter Results * (ABNORMAL) ALL BASIC METABOLIC PANEL (01/29/2025 1:00 PM EDT) SODIUM 138 136 - 145 mmol/L [facility] POTASSIUM 3.1(L) 3.5 - 5.1 mmol/L [facility] CHLORIDE 97(L) 98 - 107 mmol/L [facility] CARBON DIOXIDE 27.7 21.0 - 32.0 mmol/L [facility] ANION GAP 16.4 [facility] GLUCOSE 111(H) 74 - 106 mg/dL [facility] BLOOD UREA NITROGEN 16.0 7.0 - 18.0 mg/dL [facility] CREATININE 1.07(H) 0.55 - 1.02 mg/dL [facility] EGFR-AF PUERTO RICAN >60 >=60 mL/min/1.7 3m 2 [facility] EGFR-NON AF PUERTO RICAN 52(L) >=60 mL/min/1.7 3m 2 [facility] BUN CREATININE RATIO 15.0 [facility] CALCIUM 9.2 8.5 - 10.1 mg/dL [facility] 01/29/2025 1:00 PM EDT 01/29/2025 1:02 PM EDT Narrative [facility] - 01/29/2025 1:21 PM EDT Generic External Data Provider [facility] F inal Result [facility] documented in this encounter Visit Diagnoses Not on filedocumented in this encounter Additional Health Concerns Active Problems Noted Date Diagnosed Date Patient on antidepressant monitoring plan 2024 Baseline PHQ-9 07/31/2024 Assessment Noted Time PHQ-9 Depression Total Score: 0 12/24/19 25 11:54 AM EDT documented as of this encounter Care Teams Computational Linguist Relationship Specialty Start Date End Date Marta Doss MD [address] [place] [address] PCP - General Family Medicine 10/26/23 documented as of this encounter
--- OUTSIDE RECORDS SUMMARY | 2025-02-07 07:25 | XMS_ITS | Encounter Summary ---
Author Organization [facility] tem Address [id number] [address] [place] [address] Care Team Providers Care Upholsterer Inside Name Role Phone DaveHaley love HOSPITAL CARRIER-RUG CLEANER HAND Primary Care Pro vider Encounter Details Date Type Department Care Team (Late st Contact Info) Description 12/30/[address] [facility] [address] [place] [address] Karla Alba DO Social History Tobacco Use [...] documented as of this encounter Care Teams Upholsterer Inside Relationship Specialty Start Date End Date Haley Burrell APRN-RUG CLEANER HAND [address] [place] [address] PCP - General Family Medicine 12/05/23 documented as of this encounter
--- OUTSIDE RECORDS SUMMARY | 2025-02-07 07:25 | XMS_ITS | Encounter Summary ---
Author Organization [facility] tem Address [id number] [address] [place] [address] Care Team Providers Care Garment Sewer Hand Name Role Phone Haley Burrell GENERAL OFFICE ASSOCIATE-MANAGER FINANCIAL SYSTEMS Primary Care Pro vider Encounter Details Date Type Department Care Team (Late st Contact Info) Description 12/28/2021 Orders Only [facility] [address] [place] [phone] Alfreda Mann, GENERAL OFFICE ASSOCIATE-MANAGER FINANCIAL SYSTEMS [address] [place], [place] [phone] Social History Tobacco Use Types Packs/Day Years [...] N/A Compu margaret Radiography Alfreda Manju Mann APRN-MANAGER FINANCIAL SYSTEMS IMG DIAGNOSTIC IMAGING ORDERABLES Final Result documented in this encounter Visit Diagnoses Not on filedocumented in this encounter Additional Health Concerns Infection Onset Date Last Indicated Resolved Time COVID-19 Rule-Out 04/04/2023 04/04/2023 04/04/2023 1:59 PM EDT COVID-19 Rule-Out 12/05/2023 12/05/2023 12/05/2023 1:42 PM EDT documented as of this encounter Care Teams Garment Sewer Hand Relationship Specialty Start Date End Date Haley Burrell APRN-CNP [address] [place] [address] PCP - General Family Medicine 12/05/23 documented as of this encounter
--- OUTSIDE RECORDS SUMMARY | 2025-02-07 07:25 | XMS_ITS | Clinical Summary ---
Author Organization [facility] tem Address [id number] [address] [place] [address] Care Team Providers Care Naturopathic Doctor Name Role Phone Haley Burrell SAWMILL MANAGER-CORPORATE PLANNER Primary Care Pro vider Allergies No known [...] (LIPITOR) 40 mg tablet 1 tablet Active [id number]-dfdu-T A-calcium &mins (THERAGRAN-M) 9 mg iron-400 mcg [...] Relevant to Health Maintenance Insurance Care Teams Naturopathic Doctor Relationship Specialty Start Date End Date Haley Burrell APRN-DARSHANA [address] [place] [phone] PCP - General Family Medicine 12/05/23
--- OUTSIDE RECORDS SUMMARY | 2025-02-07 07:25 | XMS_ITS | Encounter Summary ---
Author Organization [facility] Address [address] [place] [address] Care Team Providers Care Remelt Sugar Boiler Name Role Phone Marta Doss MD Primary Care Provider [phone] Encounter Details Date Type Department Care Team (Late Contact Info) Description 01/29/2025 Clinisync Result Encounter [facility] External Department Unsolicited Provider, Generic External Data Social History Tobacco Use Types Packs/Day Years [...] Upcoming Encounters Date Type Department Care Team ([facility] Contact Info) Description 02/17/2025 8:30 AM EDT Office Visit [facility] BCP OB [address] [facility] [place] [address] Liseth Vargas PA [address] [facility] [place] [address] documented as of this encounter Goals Goal Patient Goal Type Associated Problems Recent Progress Patient-Stated? Author Help patient manage antidepressant medication Care Plan Patient on antidepressant monitoring plan No Alfreda Mann NP Baseline PHQ-9 Care Plan Baseline PHQ-9 No Alfreda Mann NP documented as of this encounter Procedures Procedure Name Priority Date/Time Associated Diagnosis Comments ECG 12-LEAD 01/29/2025 10:57 AM EDT documented in this encounter Results * ECG 12-LEAD (01/29/2025 10:57 AM EDT) Anatomical Region Laterality Modality Other 01/29/2025 10:5 7 AM EDT Narrative 01/30/2025 9:53 AM EDT The [place] [id number] Electrocardiograph Report Signed Patient: ТАТЬЯНА GRIFFITH MR#: [id number] : 1965 Acct:[id number] Age/Sex: 59 / F ADM Date: 01/29/25 Loc: PST Attending Dr: Daniel Ayala D.O. Ordering Physician: Daniel Ayala D.O. Date of Service: 01/29/25 Procedure(s): ECG 12 lead Accession Number(s): [id number] cc: [facility] Test Date: 2025-01-29 Pat Name: ТАТЯЬНА GRIFFITH Department: Room: - Gender: Female Tube Filler: : 1965 Requested By: DANIEL AYALA Order Number: [id number] [place] MD: VALERIANO AREVALO Measurements Intervals [place] Rate: 57 P: 36 AK: 136 QRS: 32 QRSD: 77 T: 49 QT: 445 QTc: 436 Interpretive Statements SINUS BRADYCARDIA No previous ECG available for comparison Electronically Signed On 01-30-2025 9:53:15 EDT by VALERIANO AREVALO Dictated By: Valeriano Arevalo M.D. Signed By: 01/30/25 0953 DD/ 1057 TD/TT: Processing Inspector: Procedure Note Radiology, Radiologist, - 01/30/[address] [id number] Electrocardiograph Report Signed Patient: ТАТЬЯНА GRIFFITHMR#: [id number] : 1965Acct:[id number] Age/Sex: 59 / FADM Date: 01/29/25 Loc: PST Attending Dr: Daniel Ayala D.O. Ordering Physician: Daniel Ayala D.O. Date of Service: 01/29/25 Procedure(s): ECG 12 lead Accession Number(s): [id number] cc: [facility] Test Date: 2025-01-29 Pat Name: ТАТЬЯНА GRIFFITH Department: Room: - Gender: Female Tube Filler: : 1965 Requested By: DANIEL AYALA Order Number: [id number] [place] MD: VALERIANO AREVALO Measurements Intervals [place] Rate: 57 P: 36 AK: 136 QRS: 32 QRSD: 77 T: 49 QT: 445 QTc: 436 Interpretive Statements SINUS BRADYCARDIA No previous ECG available for comparison Electronically Signed On 01-30-2025 9:53:15 EDT by VALERIANO AREVALO Dictated By: Valeriano Arevalo M.D. Signed By:01/30/25 0953 DD/ 1057 TD/TT: Processing Inspector: Generic External Data Provider [facility] Final Result documented in this encounter Visit Diagnoses Not on filedocumented in this encounter Additional Health Concerns Active Problems Noted Date Diagnosed Date Patient on antidepressant monitoring plan 2024 Baseline PHQ-9 07/31/2024 Assessment Noted Time PHQ-9 Depression Total Score: 0 12/24/19 25 11:54 AM EDT documented as of this encounter Care Teams Remelt Sugar Boiler Relationship Specialty Start Date End Date Marta Doss MD [address] [place] [address] PCP - General Family Medicine 10/26/23 documented as of this encounter
--- OUTSIDE RECORDS SUMMARY | 2025-02-07 07:25 | XMS_ITS | Encounter Summary ---
Author Organization [facility] Address [address] [facility] [place] [address] Care Team Providers Care Full Stack Net Developer Name Role Phone Marta Doss MD Primary Care Provider [phone] Encounter Details Date Type Department Care Team ([facility] Contact Info) Description 11/21/2024 Orders Only [facility] OB [address] [facility] [place] [place] [address] Kathya Martínez LPN [address] [place] [id number] Social History Tobacco Use Types Packs/Day Years [...] 02/17/2025 8:30 AM EDT Office Visit [facility] OB [address] [place] [address] Liseth Vargas PA [address] [place], [place] [address] documented as of this encounter Goals Goal Patient Goal Type Associated Problems Recent Progress Patient-Stated? Author Help patient manage antidepressant medication Care Plan Patient on antidepressant monitoring plan No Kampfer, Alfreda, COMMERCIAL LAWN SPECIALIST Baseline PHQ-9 Care Plan Baseline PHQ-9 No Alfreda Mann NP documented as of this encounter Procedures Procedure Name Priority Date/Time Associated Diagnosis Comments PAP SMEAR Routine 10/24/2024 12:00 AM EDT documented in this encounter Results * (ABNORMAL) Pap Smear (10/24/2024 12:00 AM EDT) Swab Cervical swab / Unknown Jamie Nurse [facility] Ob LAB CYTOLOGY ORDERABLES Final Result EXTERNAL LAB documented in this encounter Visit Diagnoses Not on filedocumented in this encounter Additional Health Concerns Active Problems Noted Date Diagnosed Date Patient on antidepressant monitoring plan 2024 Baseline PHQ-9 07/31/2024 documented as of this encounter Care Teams Full Stack Net Developer Relationship Specialty Start Date End Date Marta Doss MD [address] [place] [address] PCP - General Family Medicine 10/26/23 documented as of this encounter
--- OUTSIDE RECORDS SUMMARY | 2025-02-07 07:25 | XMS_ITS | Encounter Summary ---
Author Organization [facility] Address [address] [facility] [place] [address] Care Team Providers Care Ready To Wear Department Manager Name Role Phone Karla Alba DO Primary Care Provider [phone] Marta Doss MD Primary Care Provider [phone] Reason for Visit * Reason Onset Date Comments Med Refill 07/04/2023 Encounter Details Date Type Department Care Team (Late Contact Info) Description 07/04/2023 Refill [facility] FM [address] [place] [address] Karla Alba DO [address] [facility] [address] [place] [address] Primary insomnia Social History Tobacco [...] EDT Office Visit [facility] BCP OB [address] [facility] [place] [phone] Liseth Vargas PA [address] [facility] [place] [address] documented as of this encounter Visit Diagnoses Diagnosis Primary insomnia Persistent disorder of initiating or maintaining sleep documented in this encounter Care Teams Ready To Wear Department Manager Relationship Specialty Start Date End Date Karla Alba DO PCP - General Family Medicine 11/29/22 10/25/23 Marta Doss MD [address] [place] [address] PCP - General Family Medicine 10/26/23 documented as of this encounter
--- OUTSIDE RECORDS SUMMARY | 2025-02-07 07:26 | XMS_ITS | Encounter Summary ---
Author Organization [facility] Address [address] [place] [address] Care Team Providers Care Channel Executive Name Role Phone Marta Doss MD Primary Care Provider [phone] Encounter Details Date Type Department [facility] Description 01/28/2025 Results Follow-Up [facility] FM [address] [place] [address] Alfread Mann NP [address] [place], [place] [phone] Social History Tobacco Use Types Packs/Day Years [...] Upcoming Encounters Date Type Department Care Team [facility] Description 02/17/2025 8:30 AM EDT Office Visit [facility] BCP OB [address] [facility] [place] [address] Liseth Vargas PA [address] [facility] [address] [place], [place] [address] documented as of this encounter Goals Goal [...] documented as of this encounter Care Teams Channel Executive Relationship Specialty Start Date End Date Marta Doss MD [address] [place] [address] PCP - General Family Medicine 10/26/23 documented as of this encounter
--- OUTSIDE RECORDS SUMMARY | 2025-02-07 07:26 | XMS_ITS | Encounter Summary ---
Author Organization [facility] Address [address] [place] [address] Care Team Providers Care Senior Environmental Practice Leader Name Role Phone Marta Doss MD Primary Care Provider [phone] Encounter Details Date Type Department Care Team [...] EDT Office Visit [facility] BCP OB [address] [facility] [place] [phone] Liseth Vargas PA [address] [facility] [place] [address] documented as of this encounter Goals Goal [...] documented as of this encounter Care Teams Senior Environmental Practice Leader Relationship Specialty Start Date End Date Marta Doss MD [address] [place] [address] PCP - General Family Medicine 10/26/23 documented as of this encounter
--- OUTSIDE RECORDS SUMMARY | 2025-02-07 07:26 | XMS_ITS | Clinical Summary ---
Author Organization [facility] Healthcare Address [address] [place] [address] Care Team Providers Care Sewing Machine Operator Paper Bags Name Role Phone Marta Doss MD Primary Care Provider [phone] Allergies Active Allergy Reactions Criticality Noted Date [...] morning. 90 tablet 1 01/02/20 25 Active ferrous sulfate (Fe Tabs) 325 (65 Fe) MG EC tabletIndications :Iron deficiency Take 1 tablet (325 mg) by mouth in the morning. Take with meals. Do not crush, chew, or split.. 90 tablet 1 02/02/20 24 2024 Discontinued(O ther) ezetimibe (Zetia) 10 MG tabletIndications :Mixed hyperlipidemia Take 1 tablet (10 mg) by mouth Daily for 10 days 10 tablet 11/05/19 25 2024 Discontinued albuterol HFA 90 mcg/act inhalerIndication s:Acute bronchitis, unspecified organism Inhale 2 puffs every 4 (four) hours if needed for wheezing 18 g 12/24/19 25 2024 Discontinued(T herapy completed) ondansetron (Zofran) 4 MG tabletIndications :Nausea and vomiting, unspecified vomiting type Take 2 tablets (8 mg) by mouth every 8 (eight) hours if needed for nausea or vomiting for up to 7 days 20 tablet 01/24/20 25 2024 promethazine (Phenergan) 12.5 MG tabletIndications :Nausea and vomiting, unspecified vomiting type Take 1 tablet (12.5 mg) by mouth every 8 (eight) hours if needed for nausea or vomiting for up to 2 days 6 tablet 01/28/20 25 2024 Active Problems Problem Noted Date Diagnosed Date [...] Encounters Date Type Department Care Team Description 01/30/2025 Abstract [facility] OB [address] [place] [address] Carla Zendejas MA 01/29/2025 Clinisync Result Encounter [facility] External Department Unsolicited Provider, Generic External Data 01/29/2025 Telephone [facility] OB [address] [place] [address] [place] [address] Chayito Banks LPN 01/29/2025 Clinisync Result Encounter NOMS External Department Unsolicited Daniel Ayala DO 01/28/2025 9:30 AM EDT Ancillary Procedure [facility] [address] [address] [place] [phone] Continuous severe abdominal pain; Nausea and vomiting, unspecified vomiting type; Black tarry stools 01/28/2025 Results Follow-Up [facility] [address] [place] [address] Alfreda Mann NP 01/28/2025 Travel 01/28/2025 Results Follow-Up [facility] [address] [place] [address] Haley Burrell NP 01/27/2025 3:30 PM EDT Office Visit [facility] [address] [facility] [place] [address] Haley Burrell NP Continuous severe abdominal pain (Primary Dx); Nausea and vomiting, unspecified vomiting type; Black tarry stools 01/27/2025 Travel 01/27/2025 Telephone [facility] [address] [facility] [place] [address] Marta Velez MA 01/23/2025 1:00 PM EDT Office Visit [facility] [address] [facility] [place] [address] Haley Burrell NP Fever, unspecified fever cause (Primary Dx); Nausea and vomiting, unspecified vomiting type; Acute gastroenteritis 01/23/2025 Bamboo flowsheet [facility] [address] [facility] [place] [address] Haley Burrell NP 01/23/2025 Travel 01/09/2025 9:40 AM EDT Consult [facility] [address] [place] [address] Daniel Ayala DO Pre-op examination; Dyspareunia in female; Pelvic pain; Intramural and submucous leiomyoma of uterus 01/09/2025 Bamboo flowsheet [facility]OM[facility] [address] [place] [address] Daniel Ayala DO 01/01/2025 Refill [facility] [address] [facility] [place] [address] Bre Hernandez MA Primary hypertension 12/23/2024 12:00 PM EDT Office Visit [facility] [address] [facility] [place] [address] Alfreda Mann NP Acute bronchitis, unspecified organism (Primary Dx); Bilateral hearing loss, unspecified hearing loss type 12/23/2024 Bamboo flowsheet [facility] [address] [facility] [place] [address] Alfreda Mann NP 12/23/2024 Travel 11/29/2024 Orders Only [facility] [address] [facility] [place] [address] Marta Doss MD 11/28/2024 8:40 AM EDT Consult [facility] OB [address] [place] [address] [place] [address] Daniel Ayala, Pelvic pain in female; History of uterine fibroid; Pain in female genitalia on intercourse 11/28/2024 Bamboo flowsheet [facility]OM[facility] [address] [place] [address] Daniel Ayala DO 11/27/2024 Results Follow-Up [facility] [address] [facility] [place] [address] Marta Blandon MA 11/27/2024 Travel 11/21/2024 Orders Only [facility]OM[facility] [address] [place] [address] Kathya Martínez LPN 11/10/2024 Refill [facility] [address] [facility] [place] [address] Alfreda Mann NP Menopausal syndrome (hot flashes); Anxiety from Last 3 Months Immunizations Immunization Administration [...] EDT Office Visit [facility] OB [address] [facility] [place] [phone] Liseth Vargas PA [address] [facility] [place] [address] Health Maintenance Due Date Last Done Comments CT Colonography 1965 FIT 1965 Sigmoidoscopy 1965 Diabetes: Hemoglobin A1C 10/29/2024 025, 02/01/2024, 08/02/2023, Additional history exists Mammogram 11/14/2024 11/15/2023, 10/22, 10/29/2021, Additional history exists Influenza Vaccine (#1) 2025 , 07/21/2022, 05/04/2021, Additional history exists FIT-DNA 06/09/2025 06/09/2022, 03/12/2021 HPV/Cotest 09/16/2025 09/16/2020, 12/03/2019, 06/25/2018 Diabetes: Urine Protein Screening 09/25/2025 09/25/2024, 08/02/2023, 10/19/2017 FOBT 01/30/2026 01/30/2025 Diabetes: Retinopathy Screening 11/28/2026 11/28/2024, 07/04/2022, 07/04/2022, [...] 0157 CULT Routine 01/29/2025 2:19 PM EDT ALL BASIC METABOLIC PANEL Routine 01/29/2025 1:00 PM EDT ECG 12-LEAD 01/29/2025 10:[address] ABDOMEN PELVIS WO IV CONTRAST STAT [...] Recently Relevant to Health Maintenance Results * Occult blood x 1, stool (01/30/2025 9:33 AM EDT) MICRO NUMBER [id number] [facility] SPECIMEN QUALITY Adequate [facility] SOURCE INSURE [...] INCORRECT, PLEASE CONTACT CLIENT SERVICES. PHONE NUMBER: [phone] Stool Rectal contents / Unknown 01/29/2025 2:22 PM EDT Narrative Resulting Agency Comment Performing Organization Information Site ID: QPT Name: [facility] Address: [address] [place] [address], [address] [place] [phone] Director: Juve Zamarripa MD us Haley Burrell HOUSE MANAGER LAB BODY FLUIDS AND STO OLS ORDERABLES Final Result Performing Organization Address [facility] de Phone Number [facility] * SALMONELLA/SHIGELLA CULT, CAMPY EIA AN DSHIGA TOXIN W/RFL E.COLI 0157 CULT (01/29/2025 2:19 PM EDT) Pathologist [facility] MICRO NUMBER [id number] [facility] SPECIMEN QUALITY Adequate [facility] SOURCE STOOL [facility] STATUS FINAL [facility] CAMPYLOBACTER SPP.AG,EIA SEE NOTE [facility] Comment: Not Detected Reference Range:Not Detected MICRO NUMBER [id number] [facility] SPECIMEN QUALITY Adequate [facility] SOURCE STOOL [facility] STATUS FINAL [facility] SHIGA RESULT SEE NOTE [facility] Comment: Not Detected Reference Range:Not Detected MICRO NUMBER [id number] [facility] SPECIMEN QUALITY Adequate [facility] SOURCE STOOL [facility] STATUS FINAL [facility] RESULT SEE NOTE [facility] Comment: No Salmonella or Shigella isolated 01/29/2025 2:19 PM EDT 01/29/2025 2:19 PM EDT Narrative [facility] - 02/01/2025 12:51 PM EDT SPLIT 01/27/2025 FROM [id number] Resulting Agency Comment Performing Organization Information Site ID: QPT Name: [facility] Address: [address] [place] [address], [address] [place] [phone] Director: Juve Zamarripa MD us Haley Burrell HOUSE MANAGER LAB BODY FLUIDS AND STO OLS ORDERABLES Final Result Performing Organization Address [facility] Co de Phone Number [facility] * (ABNORMAL) ALL BASIC METABOLIC PANEL (01/29/2025 [...] 0.55 - 1.02 mg/dL TB[facility] TBH EGFR-AF DANISH >60 >=60 mL/min/1.7 3m 2 TBH TBH EGFR-NON AF DANISH 52(L) >=60 mL/min/1.7 3m 2 TB[facility] BUN CREATININE RATIO 15.0 TBH CALCIUM 9.2 8.5 - 10.1 mg/dL TBH 01/29/2025 1:00 PM EDT 01/29/2025 1:02 PM EDT Narrative [facility] - 01/29/2025 1:21 PM EDT us Generic External Data Provider [facility] F inal Result [facility] TBH * ECG 12-LEAD (01/29/2025 10:57 AM EDT) Anatomical Region Laterality Modality Other 01/29/2025 10:5 7 AM EDT Narrative 01/30/2025 9:53 [place] [address] Electrocardiograph Report Signed Patient: REKHA GRIFFITH MR#: [id number] : 1965 Acct:[id number] Age/Sex: 59 / F ADM Date: 01/29/25 Loc: PST Attending Dr: Daniel Ayala D.O. Ordering Physician: Daniel Ayala D.O. Date of Service: 01/29/25 Procedure(s): ECG 12 lead Accession Number(s): [id number] cc: [facility] Test Date: 2025-01-29 Pat Name: REKHA GRIFFITH Department: Room: - Gender: Female [employer]: : 1965 Requested By: DANIEL AYALA Order Number: [id number] Reading MD: ARAM AREVALO Measurements Intervals Diller Rate: 57 P: 36 GA: 136 QRS: 32 QRSD: 77 T: 49 QT: 445 QTc: 436 Interpretive Statements SINUS BRADYCARDIA No previous ECG available for comparison Electronically Signed On 01-30-2025 9:53:15 EDT by ARAM AREVALO Dictated By: Aram Arevalo M.D. Signed By: 01/30/2553 DD/ 1057 TD/TT: Lead Material Handler: Procedure Note Radiology, Radiologist, - 01/30/2025 [place] [address] Electrocardiograph Report Signed Patient: REKHA GRIFFITHMR#: [id number] : 1965Acct:[id number] Age/Sex: 59 / FADM Date: 01/29/25 Loc: [facility] Attending Dr: Daniel Ayala D.O. Ordering Physician: Daniel Ayala D.O. Date of Service: 01/29/25 Procedure(s): ECG 12 lead Accession Number(s): [id number] cc: [facility] Test Date: 2025-01-29 Pat Name: REKHA GRIFFITH Department: Room: - Gender: Female [employer]: : 1965 Requested By: DANIEL AYALA Order Number: [id number] Reading MD: ARAM AREVALO Measurements Intervals Diller Rate: 57 P: 36 GA: 136 QRS: 32 QRSD: 77 T: 49 QT: 445 QTc: 436 Interpretive Statements SINUS BRADYCARDIA No previous ECG available for comparison Electronically Signed On 01-30-2025 9:53:15 EDT by ARAM AREVALO Dictated By: Aram Arevalo M.D. Signed By:01/30/2553 DD/ 1057 TD/TT: Lead Material Handler: Generic External Data [facility] Final Result * CT abdomen pelvis wo IV contrast [...] Performing Organization Information Site ID: QPT Name: [facility] Address: [address] [place] [address], [address] [place] [address] Director: Juve Zamarripa MD Haley Burrell HOUSE MANAGER LAB BLOOD ORDERABLES Fi nal Result Performing Organization Address [facility] de Phone Number [facility] * Lipase (01/27/2025 3:54 PM EDT) LIPASE 54 7 - 60 U/L [facility] Blood Venous blood specimen / Unknown 01/27/2025 3:54 PM EDT 01/27/2025 3:55 PM EDT Narrative [facility] - 01/28/2025 4:41 AM EDT COLLECTION KIT GIVEN TO PATIENT. PATIENT ADVISED TO RETURN. Resulting Agency Comment Performing Organization Information Site ID: QPT Name: [facility] Address: [address] [place] [address], [address] [place] [address] Director: Juve Zamarripa MD Haley Burrell HOUSE MANAGER LAB BLOOD ORDERABLES Fi nal Result Performing Organization Address [facility] de Phone Number [facility] * Amylase (01/27/2025 3:54 PM EDT) AMYLASE 44 21 - 101 U/L [facility] Blood Venous blood specimen / Unknown 01/27/2025 3:54 PM EDT 01/27/2025 3:55 PM EDT Narrative [facility] - 01/28/2025 4:41 AM EDT COLLECTION KIT GIVEN TO PATIENT. PATIENT ADVISED TO RETURN. Resulting Agency Comment Performing Organization Information Site ID: QPT Name: [facility] Address: [address], [address] [place] [address] Director: Juve Zamarripa MD us Haley Burrell HOUSE MANAGER LAB BLOOD ORDERABLES Fi nal Result [facility] [...] Performing Organization Information Site ID: QPT Name: [facility] Address: [address], [address] [place] [address] Director: Juve Zamarripa MD us Haley Burrell HOUSE MANAGER LAB BLOOD ORDERABLES Fi nal Result [facility] [...] equation in the estimation of LDL-C. Roby SS et al. DREW. 2013;310(19): 7373-9620 (http://education.EQUISO/faq/VTU176) CHOL/HDLC RATIO 4.9 <5.0 (calc) [facility] NON [...] Performing Organization Information Site ID: QPT Name: [facility] Address: [facility] [address] , [address] [place] [phone] Director: Juve Zamarripa MD us Alfreda Mann HOUSE MANAGER LAB BLOOD ORDERABLES Final Resu lt Performing Organization Address City/[facility]/ZIP Co de Phone Number [facility] * STATUS COVID-19/FLU (01/23/2025 1:16 PM EDT) FLU A negative FLU B negative SARS COV 2 RNA negative Nasal 01/23/2025 1:16 PM EDT Result [facility] Haley Burrell HOUSE MANAGER POINT OF CARE TEST ENTE R/EDIT ORDERABLES Final Result * Diabetic Retinopathy Screening - OU - Both Eyes (11/28/2024 9:12 AM EDT) Anatomical Region Laterality Modality Head Other Marta Doss MD OPHTH PHOTOGRAPHY Final Resul t * (ABNORMAL) Pap Smear (10/24/2024 12:00 AM EDT) Swab Cervical swab / Unknown Result [facility] Jamie Laird [facility] Ob LAB CYTOLOGY ORDERABLES Final Result Performing Organization Address City/[facility] Co de Phone Number EXTERNAL LAB * Microalbumin / creatinine, urine [...] Performing Organization Information Site ID: QPT Name: [facility] Address: [address] [place] [address], [address] [place] [phone] Director: Juve Zamarripa MD Alfreda Mann HOUSE MANAGER LAB URINE ORDERABLES Final Resu lt Performing Organization Address City/[facility]/ZIP Co de Phone Number [facility] * (ABNORMAL) POCT Glycated hemoglobin, total (07/31/2024 8:26 AM EST) Hemoglobin A1C 6.3 Capillary 07/31/2024 8:26 AM EST Alfreda Mann SANJAY POINT OF CARE TEST ENTER/EDIT O RDERABLES Final Result * Bilateral screening mammogram with tomosynthesis (11/15/2023 8:43 AM EDT) Anatomical Region Laterality Modality Breast Bilateral Mammography 11/15/2023 11:2 3 AM EDT Impressions 11/15/2023 11:47 AM EDT BIRADS 1 - Negative Follow-up: Routine Screening Mamm Board Certified Radiologists. Accredited by the ACR and FDA. MAMMOGRAPHY IS VERY IMPORTANT TO YOUR HEALTH. THE [place] CANC[employer] SOCIETY GUIDELINES RECOMMEND THAT WOMEN 40 [...] IS VERY IMPORTANT TO YOUR HEALTH. THE DANISH CANCER SOCIETYGUIDELINES RECOMMEND THAT WOMEN 40 YEARS [...] SIGNED BY: Elieser Rodriguez MD Haley Burrell HOUSE MANAGER IMG BI PROCEDURES Final Result * Hm [...] SULT: Negative for intraepithelial lesion or malignancy. [facility] LEGACY EXTERNAL LAB COMMENT: This Pap test has been evaluated with computer assisted technology. [facility] LEGACY EXTERNAL LAB COMMISSARY AGENT: SEE NOTE NO [facility] LEGACY EXTERNAL LAB Comment: LXT, CT(ASCP) CT screening location: [place] [address]. REVIEW COMMISSARY AGENT: SEE NOTE [facility] LEGAC Y EXTERNAL LAB Comment: PCJ, SCT(ASCP) CT screening location: [place] [address]. COMMENT SEE NOTE [facility] LEGAC Y EXTERNAL [...] HPV MRNA E6/E7 Not Detected Not Detected [facility] EXTERNAL LAB Comment: Methodology: Discharging Machine Operator-Mediated Amplification This assay detects E6/E7 viral messenger RNA (mRNA) from 14 high-risk HPV types (16,18,31,33,35,39,45,51,52,56,58,59,66,68). The analytical performance characteristics of this assay have been determined by [facility]. The modifications have not been cleared or approved by the FDA. This assay has been validated pursuant to the CLIA regulations and is used for clinical purposes. For additional information, please refer to http://education.NEURONIX.Mettl/ZMW425t0 (This link if provided for information/ educational purposes only.) 09/16/2020 us Westley Ferguson NP [facility] Final Result [facility] from Last 3 Months or Most Recently Relevant to Health Maintenance Additional Health Concerns Active Problems Noted Date Diagnosed Date Patient on antidepressant monitoring plan 2024 Baseline PHQ-9 07/31/2024 Insurance [facility] Care Teams Sewing Machine Operator Paper Bags Relationship Specialty Start Date End Date Marta Doss MD [address] [place] [address] PCP - General Family Medicine 10/26/23
--- OUTSIDE RECORDS SUMMARY | 2025-02-07 07:26 | XMS_ITS | Encounter Summary ---
Author Organization [facility] Address [address] [place] [address] Care Team Providers Care Supervisor Hand Workers Name Role Phone Marta Doss MD Primary Care Provider [phone] Encounter Details Date Type Department Care Team [...] [address] [facility] [place] [phone] Liseth Vargas PA [address] [facility] [place] [address] documented as of this encounter Goals Goal [...] documented as of this encounter Care Teams Supervisor Hand Workers Relationship Specialty Start Date End Date Marta Doss MD [address] [place] [address] PCP - General Family Medicine 10/26/23 documented as of this encounter
--- OUTSIDE RECORDS SUMMARY | 2025-02-07 07:26 | XMS_ITS | Encounter Summary ---
Author Organization [facility] Address [address] [place] [address] Care Team Providers Care Chief Technologist Name Role Phone Marta Doss MD Primary Care Provider [phone] Encounter Details Date Type Department Care Team (Late Contact Info) Description 01/28/2025 Results Follow-Up [facility] [address] [place] [address] Haley Burrell NP [address] [address] Social History Tobacco Use Types [...] Office Visit [facility] [address] [facility] [place] [address] Liseth Vargas PA [address] [place], [place] [phone] documented as of this encounter Goals Goal [...] documented as of this encounter Care Teams Chief Technologist Relationship Specialty Start Date End Date Marta Doss MD [address] [place] [address] PCP - General Family Medicine 10/26/23 documented as of this encounter
--- OUTSIDE RECORDS SUMMARY | 2025-02-07 07:26 | XMS_ITS | Encounter Summary ---
Author Organization [facility] Address [address] [place] [address] Care Team Providers Care Vessel Captain Name Role Phone Marta Doss MD Primary Care Provider [phone] Encounter Details Date Type Department Care Team (Late Contact Info) Description 01/27/2025 Telephone [facility] [address] [place] [address] Marta Velez MA [address] [place], [place] [phone] Social History Tobacco Use Types Packs/Day Years [...] 02/17/2025 8:30 AM EDT Office Visit [facility] OB [address] [place] [address] [place] [address] Liseth Vargas PA [address] [place] [address] [place] [address] documented as of this encounter Goals Goal [...] documented as of this encounter Care Teams Vessel Captain Relationship Specialty Start Date End Date Marta Doss MD [address] [place] [address] PCP - General Family Medicine 10/26/23 documented as of this encounter
--- OUTSIDE RECORDS SUMMARY | 2025-02-07 07:26 | XMS_ITS | Encounter Summary ---
Author Organization [facility] Supramed [facility] tem Address [id number] [place] [address] Care Team Providers Care Construction Equipment Technician Name Role Phone Yennileonardohalle Haley Manju GALVAN-AUTO DAMAGE ADJUSTER Primary Care Pro vider Reason for Visit * Reason Onset Date Comments Pain, MRI 01/13/2022 Encounter Details Date Type Department Care Team (Late st Contact Info) Description 01/13/2022 Telephone [facility] [address] [place] [phone] Yamile Hirsch RN Pain, MRI Social History [...] documented as of this encounter Care Teams Construction Equipment Technician Relationship Specialty Start Date End Date Haley Burrell APRN-DARSHANA [address] [place] [address] PCP - General Family Medicine 12/05/23 documented as of this encounter
[2025-02-07 07:29] LABS: Hematocrit 37.1 % (36.0-48.0); Hemoglobin 12.5 g/dL (12.0-16.0); Immature Granulocytes Abs Auto 0.02 10^3/uL (0.00-0.03); Immature Granulocytes Pct Auto 0.3 % (0.0-0.5); Lymphocytes Absolute Auto 2.7 10^3/uL (1.2-3.8); Mean Corpuscular HGB Conc 33.7 g/dL (29.9-35.2); Mean Corpuscular Hemoglobin 29.6 pg (26.7-34.0); Mean Corpuscular Volume 87.7 fL (81.0-99.0); Platelet Count 379 10^3/uL (150-450); Red Blood Count 4.23 10^6/uL (4.20-5.40); White Blood Count 6.9 10^3/uL (4.0-11.0)
[2025-02-07 07:41] LABS: Anion Gap 14.5; Blood Urea Nitrogen 12.0 mg/dL (7.0-18.0); Calcium 9.2 mg/dL (8.5-10.1); Carbon Dioxide 30.3 mmol/L (21.0-32.0); Chloride 100 mmol/L (98-107); Estimated GFR (African America >60 (>=60 mL/min/1.73m^2); Estimated GFR (Non-African Ame 56 (>=60 mL/min/1.73m^2); Glucose 134 mg/dL (74-106); Potassium 3.8 mmol/L (3.5-5.1); Sodium 141 mmol/L (136-145)
--- NOTE | 2025-02-07 09:46 | P.ON_ITS ---
Brief Operative Note Date of procedure: 02/07/25 Pre-op diagnosis general: pelvic pain, dyspareunia, uterine fibroid Post-op diagnosis: same as pre-op Procedure: NAME OF PROCEDURE: [d&c hysteroscopy, diagnostic laparoscopy] PROCEDURE: The patient was taken back to the Operating Room where she was prepped and draped in normal sterile fashion after being placed under general anesthesia without difficulty. She was also placed in the dorsal lithotomy position. A weighted speculum was placed in the patient?s vagina. The anterior lip of the cervix was identified and grasped with a single tooth tenaculum. The patient?s uterus was then sounded roughly to [?7 ] cm. The patient was then gently dilated using Hegar dilators. The hysteroscope was passed through the patient?s cervix into the uterus. due to prior ablation there was limited assessment of the uterine cavity, pipette was used to try and obtain a uterine sample. No gross evidence of polyps, fibroids or malignancy. The hysteroscope was then removed from the patient's uterus.? At that point, gentle curettage was performed until a gritty texture was noted. The endometrial curettings were sent out to pathology.? The single tooth tenaculum was then removed from the patient's anterior lip of the cervix where excellent hemostasis was noted. A sponge stick was placed into the patient's vagina. Attention was turned to the patient's abdomen, where a small umbilical incision was made. The fascia was tented using Steven clamps and the fascia was entered sharply. Confirmation of intraabdominal placement of the 10 mm port was confirmed under direct visualization using a laparoscope. The patient's abdomen was then insufflated using CO2 gas with approximately 4 liters. A second port was placed left laterally, this was done under direct visualization with a 5 mm port. Survey of the patient's abdomen demonstrated normal liver and gallbladder. Survey of the patient's pelvic anatomy demonstrated normal appearing rt and lt ovary and tubes as well as normal appearing uterus. No endometrial implants could be noted, no evidence of any pelvic disease was seen, normal appearing pelvic cavity. All instruments were removed from the patient's abdomen. The patient's abdomen was deinsufflated of CO2 gas. The patient tolerated the procedure well. Sponge stick was removed from the patient's vagina. The patient's infraumbilical fascia was closed using #0 Vicryl on a GI needle. The patient's skin was closed laterally and infraumbilically using 4-0 Vicryl. The patient tolerated the procedure well. Sponge, lap and needle counts were correct x 2. The patient was taken to Recovery Room in stable condition. Anesthesia: ABIMBOLAA Surgeon: Lam Ayala Ornamental Metal Erector: Talia Santizo Estimated blood loss (mL): 5 Pathology: other (endometrial currettings) Condition: stable Disposition: PACU Urinary Catheter Management Urinary Catheter Management Urethral: Cath placed during this visit: no
--- NOTE | 2025-02-07 10:25 | PC.NURSE ---
Complains of a scratchy throat
--- NOTE | 2025-02-07 11:19 | PC.NURSE ---
Denies urge to void
--- NOTE | 2025-02-07 11:56 | PC.NURSE ---
Up to bathroom and voids pink tinged urine without difficulty
== END 2025-02-07 11:45 | disposition home or self-care (01) ==
LOC: SURGOUT 07:24
PROVIDERS: PCP Nurse Practitioner Family; Visit Provider Obstetrics & Gynecology
PROC: (CPT 840; principal; 2025-02-07 08:50)
DX: R10.2 Pelvic and perineal pain (principal); N94.10 Unspecified dyspareunia; I10 Essential (primary) hypertension; Z98.51 Tubal ligation status; E78.5 Hyperlipidemia, unspecified; E03.9 Hypothyroidism, unspecified; D25.9 Leiomyoma of uterus, unspecified
CPT/HCPCS: 49320; 58558; 36415; 80048; 85025; 86850; 86900; 86901; 88305; J1100; J1200; J1885; J2405; J2704; J3010